=== PATIENT | female | born 1980 | race Caucasian/White ===

== ENCOUNTER 2020-01-14 08:43 | Outpatient (REF) | payer OTHER, SELFPAY ==
--- NOTE | 2020-01-14 09:00 | EMG_ITS ---
Right median and ulnar motor and sensory studies were performed. Right radial sensory study was performed and paraspinal muscles were tested. IMPRESSION: [id number] right median neuropathy across carpal tunnel. MD EMILY Modi/EMMIE / [id number]
== END 2020-01-14 08:44 | disposition home or self-care (01) ==
LOC: HO.NEURO 08:43
PROVIDERS: PCP Internal Medicine Geriatric Medicine; Visit Provider Internal Medicine Geriatric Medicine
DX: G56.01 Carpal tunnel syndrome, right upper limb (principal); M79.641 Pain in right hand; R20.0 Anesthesia of skin
CPT/HCPCS: 95860

== ENCOUNTER → 2020-02-18 12:34 | Outpatient (BNVA) | payer OTHER, SELFPAY | PROVIDERS: PCP Internal Medicine Geriatric Medicine; Visit Provider Surgery | DX: Z01.818 Encounter for other preprocedural examination (principal); E66.09 Other obesity due to excess calories; Z68.35 Body mass index [BMI] 35.0-35.9, adult; R06.02 Shortness of breath | CPT/HCPCS: 99202 ==

== ENCOUNTER 2020-02-23 12:24 | Outpatient (REF) | payer OTHER, SELFPAY ==
--- NOTE | 2020-02-23 12:30 | ECG_ITS ---
Test Reason : CP Blood Pressure : / mmHG Vent. Rate : 068 BPM Atrial Rate : 068 BPM P-R Int : 156 ms QRS Dur : 084 ms QT Int : 412 ms P-R-T Axes : 060 059 041 degrees QTc Int : 438 ms Normal sinus rhythm Normal ECG No previous ECGs available Referred By: Maribel Colvin Electronically Signed By:KAREY PEREIRA
--- NOTE | 2020-02-23 13:09 | XR_ITS ---
EXAMINATION: XR CHEST CLINICAL INFORMATION: Shortness of breath COMPARISON: None TECHNIQUE: 2 views of the chest were obtained. FINDINGS: No significant abnormality is noted involving the heart, lungs, mediastinum, bony thorax or soft tissues. XR/XR chest 2V IMPRESSION: Unremarkable examination.
[2020-02-23 14:30] LABS: MANUAL DIFF FLAG NO
[2020-02-23 14:33] LABS: Basophils Percent Auto 0.3 % (0-2); Eosinophils Percent Auto 0.4 % (0-4); Hematocrit 37.5 % (37-47); Hemoglobin 12.8 g/dl (12.0-16.0); Imm Gran Abs Auto 0.03 X10*3/uL (0.00-0.03); Imm Gran Pct Auto 0.4 % (0.0-0.4); Lymphocytes Absolute Auto 1.8 X10*3/uL (1.2-4.9); Lymphocytes Percent Auto 24.6 % (20-40); Mean Corpuscular HGB Conc 34.1 g/dl (31.0-35.0); Mean Corpuscular Hemoglobin 29.6 pg (27.0-33.0); Mean Corpuscular Volume 86.8 fL (80-98); Monocytes Absolute Auto 0.3 X10*3/uL (0.1-1.2); Monocytes Percent Auto 3.8 % (2-11); Neutrophils Absolute Auto 5.2 X10*3/uL (2.0-8.3); Neutrophils Percent Auto 70.5 % (45-73); Platelet Count 377 X10*3/uL (160-400); Red Blood Count 4.32 X10*6/uL (4.20-5.50); Red Cell Distribution Width 11.6 % (11.0-16.0); White Blood Count 7.4 X10*3/uL (4.8-10.8)
[2020-02-23 15:05] LABS: Alanine Aminotransferase 10 U/L (0-31); Albumin Level 4.1 g/dL (3.5-5.0); Alkaline Phosphatase 72 U/L (39-117); Anion Gap 10 (12-20); Aspartate Amino Transferase 13 U/L (5-31); Bilirubin Total 0.4 mg/dL (0.0-1.0); Blood Urea Nitrogen 7 mg/dL (9-16); C Reactive Protein 0.24 mg/dL (< or = 0.50); Calcium 9.2 mg/dL (8.4-10.2); Carbon Dioxide 30 mmol/L (22-29); Chloride 100 mmol/L (96-108); Cholesterol 152 mg/dL; Estimated Glomerular Filt Rate > 60; Glucose Fasting 83 mg/dL (60-99); HDL Cholesterol 44 mg/dL; Iron 86 mcg/dL (30-160); LDL Cholesterol Calculated 78 mg/dl; Percent Iron Saturation 28 % (15-50); Potassium 3.7 mmol/l (3.3-5.1); Sodium 136 mmol/L (135-145); Total Iron Binding Capacity 308 mcg/dL (228-428); Total Protein 7.4 g/dL (6.5-8.0); Triglycerides 153 mg/dL; Unsaturated Iron Binding 222 ug/dL
[2020-02-23 15:27] LABS: Thyroid Stimulating Hormone 1.31 uIU/mL (0.32-4.0); Vitamin D 25-OH Total 17.5 ng/mL (>30)
[2020-02-23 15:31] LABS: Vitamin B12 216 pg/mL (200-900)
[2020-02-24 18:33] LABS: Calcium (PTHI) 9.2 mg/dL (8.6-10.2); PTHI 58 pg/mL (14-64)
[2020-02-25 22:58] LABS: Zinc 71 mcg/dL (60-130)
[2020-02-27 11:52] LABS: Vitamin B1 <6 nmol/L (8-30)
[2020-03-01 12:57] LABS: Vitamin A 34 mcg/dL (38-98)
== END 2020-02-23 12:25 | disposition home or self-care (01) ==
LOC: HO.LAB 12:24
PROVIDERS: PCP Internal Medicine; Visit Provider Surgery
DX: Z01.818 Encounter for other preprocedural examination (principal); R06.02 Shortness of breath
CPT/HCPCS: 36415; 71046; 80053; 80061; 82306; 82607; 83540; 83970; 84425; 84443; 84590; 84630; 85025; 86140; 93005

== ENCOUNTER → 2020-03-04 08:16 | Outpatient (BNVA) | payer OTHER, SELFPAY | PROVIDERS: PCP Internal Medicine; Visit Provider Surgery | DX: Z76.89 Persons encountering health services in other specified circumstances (principal) ==

== ENCOUNTER → 2020-03-18 08:26 | Outpatient (BNVA) | payer OTHER, SELFPAY | PROVIDERS: PCP Internal Medicine; Visit Provider Dietitian, Registered ==

== ENCOUNTER → 2020-03-22 12:21 | Outpatient (BNVA) | payer OTHER, SELFPAY | PROVIDERS: PCP Internal Medicine; Visit Provider Orthopaedic Surgery | DX: G56.01 Carpal tunnel syndrome, right upper limb (principal) | CPT/HCPCS: 99202 ==

== ENCOUNTER 2020-04-01 10:28 | Outpatient (REF) | payer OTHER, SELFPAY ==
[2020-04-02 14:01] LABS: H Pylori Breath Test DETECTED (NOT DETECTED)
== END 2020-04-01 10:29 | disposition home or self-care (01) ==
LOC: HO.LNP 10:28
PROVIDERS: PCP Internal Medicine; Visit Provider Surgery
DX: E66.09 Other obesity due to excess calories (principal); Z68.34 Body mass index [BMI] 34.0-34.9, adult; Z11.0 Encounter for screening for intestinal infectious diseases
CPT/HCPCS: 83013; 99211; 99212

== ENCOUNTER → 2020-04-01 11:43 | Outpatient (BNVA) | payer OTHER, SELFPAY | PROVIDERS: PCP Internal Medicine; Visit Provider Surgery ==

== ENCOUNTER → 2020-04-08 08:25 | Outpatient (BNVA) | payer OTHER, SELFPAY | PROVIDERS: PCP Internal Medicine; Visit Provider Dietitian, Registered ==

== ENCOUNTER → 2020-04-18 14:49 | Outpatient (BNVA) | payer OTHER, SELFPAY | PROVIDERS: PCP Internal Medicine; Visit Provider Surgery | DX: E66.09 Other obesity due to excess calories (principal); Z68.35 Body mass index [BMI] 35.0-35.9, adult | CPT/HCPCS: 99212 ==

== ENCOUNTER 2020-04-28 13:59 | Outpatient (REF) | payer OTHER, SELFPAY ==
--- NOTE | ~2020-04-28 | MM_ITS ---
EXAMINATION: MM DIAGNOSTIC DIGITAL BREAST TOMOSYNTHESIS, BILATERAL CLINICAL INFORMATION: Right lateral breast pain The lifetime risk of breast cancer based on the Tyrer-Cuzick Model is 6.4%. COMPARISON: Mammography: None TECHNIQUE: Digital breast tomosynthesis is performed in both the craniocaudal and mediolateral oblique views along with computer-aided detection (CAD). Synthesized 2D images are generated from the tomosynthesis. Additional spot compression views of the right breast in craniocaudal and 90 degree mediolateral views performed. FINDINGS: The breasts are heterogeneously dense, which may obscure small masses (ACR BI-RADS breast composition Category c). Within the central upper outer aspect of the right breast is question of an asymmetric density with some microcalcifications for which spot magnification views were performed which efface the lesion and with no suspicious calcifications remaining. No abnormal dominant masses, suspicious grouping of microcalcifications, or architectural distortion seen within the left breast. Targeted ultrasound of the right breast in region of patient's pain did not demonstrate any abnormal cystic or solid masses. No region of abnormal distal sound shadowing appreciated. Results are provided to the patient at time of visit by the technologist. MM/MM tomosynthesis diagnostic BI IMPRESSION: No specific mammographic or ultrasound findings to suggest malignancy. ASSESSMENT: BI-RADS 1: Negative RECOMMENDATION: Routine annual mammography screening due in 12 months. Clinical management This patient's information was entered into a reminder system with a target due date for their next mammogram.
--- NOTE | ~2020-04-28 | US_ITS ---
EXAMINATION: US DIAGNOSTIC ULTRASOUND BREAST, RIGHT CLINICAL INFORMATION: Right breast pain. COMPARISON: Mammography of same day. TECHNIQUE: Ultrasound of the breast is performed with real-time sparks scale imaging and color Doppler. FINDINGS: Targeted ultrasound of the right breast in region of patient's pain did not demonstrate any abnormal cystic or solid masses. No region of abnormal distal sound shadowing appreciated. Results are provided to the patient at time of visit by the technologist. US/US breast RT limited IMPRESSION: No specific mammographic or ultrasound findings to suggest malignancy. ASSESSMENT: BI-RADS 1: Negative RECOMMENDATION: Routine annual mammography screening due in 12 months. Clinical management
== END 2020-04-28 14:00 | disposition home or self-care (01) ==
LOC: HO.MAMMO 13:59
PROVIDERS: PCP Advanced Practice Midwife; Visit Provider Advanced Practice Midwife
DX: N64.4 Mastodynia (principal)
CPT/HCPCS: 76642; 77062; 77066

== ENCOUNTER 2020-05-04 08:57 | Outpatient (REF) | payer OTHER, SELFPAY ==
[2020-05-04 11:13] LABS: Vitamin D 25-OH Total 23.8 ng/mL (>30)
[2020-05-05 14:53] LABS: H Pylori Breath Test DETECTED (NOT DETECTED)
[2020-05-08 13:22] LABS: Vitamin B1 17 nmol/L (8-30)
[2020-05-09 03:11] LABS: Vitamin A 34 mcg/dL (38-98)
== END 2020-05-04 08:58 | disposition home or self-care (01) ==
LOC: HO.LAB 08:57
PROVIDERS: PCP Internal Medicine; Visit Provider Surgery
DX: Z01.818 Encounter for other preprocedural examination (principal); G56.01 Carpal tunnel syndrome, right upper limb; E50.9 Vitamin A deficiency, unspecified; E51.9 Thiamine deficiency, unspecified; E55.9 Vitamin D deficiency, unspecified
CPT/HCPCS: 36415; 82306; 83013; 84425; 84590; 99212

== ENCOUNTER → 2020-05-10 08:59 | Outpatient (BNVA) | payer OTHER, SELFPAY | PROVIDERS: PCP Internal Medicine; Visit Provider Surgery | DX: E66.09 Other obesity due to excess calories (principal); Z68.35 Body mass index [BMI] 35.0-35.9, adult | CPT/HCPCS: 99212 ==

== ENCOUNTER 2020-05-19 10:59 | Day surgery (SDC) | payer OTHER, SELFPAY ==
[2020-05-19 11:16] VITALS: BP 127/76; PULSE 81; RESP 16; TEMP 36.4; O2SAT 96; BMI 34.0
--- NOTE | 2020-05-19 11:32 | P.OP_ITS ---
Operative Note Operative Note Date of Service: 05/19/20 Narrative: Preop diagnosis: 1. Right Carpal tunnel syndrome Postop diagnosis: 1. Right Carpal tunnel syndrome Procedure: 1. The right Carpal tunnel release Surgeon: Kaia Morales MD Anesthesia: local block using 1% lidocaine with epinephrine Findings: Thickened transverse carpal ligament. EBL: Less than 5 mL Specimens: None Complications: None Disposition: Brought to recovery room in stable condition Plan: Follow-up for 7-10 days for wound check and suture removal Indications: The patient is 40 years old, with right carpal tunnel syndrome that has been unresponsive to nonoperative management. The risks and benefits of operative treatment including but not limited to risk of damage to blood vessels, nerves, tendons, infection, persistent pain, persistent symptoms, or possible need for additional surgery were discussed with the patient and the patient wishes to proceed with surgery. Procedure: Once consent was obtained a local block was performed using a combination of 1% lidocaine with epinephrine. The patient was then brought back to the operating suite and placed on the operative table in supine position. A tourniquet was applied to the proximal aspect of the right upper extremity and the limb was prepped and draped in a standard surgical fashion. Once assured that we had a good block, a 1.5 cm longitudinal incision was made centered over the right carpal tunnel. The incision was made through the skin to the subcutaneous tissues using a #15 blade. Dissection was made down to the level of the transverse carpal ligament with care being taken to protect the palmar cutaneous nerve. Once the transverse carpal ligament was clearly visualized, a longitudinal incision was made in the transverse carpal ligament 1st using a #15 blade, then using tenotomy scissors under direct visualization. Care was taken to look for and protect the motor branch of the median nerve when seen in this area. Once satisfied with our carpal tunnel release the wound was copiously ir rigated with normal saline and hemostasis was obtained with a brief period of local pressure. The skin edges were reapproximated with some 5.0 nylon suture material and a sterile dressing was applied. The patient appears to have tolerated the procedure well and with no complications. All digits were well vascularized at the conclusion of the case.
[2020-05-19 14:01] VITALS: BP 122/75; PULSE 70; RESP 18; TEMP 37.1; O2SAT 97
--- NOTE | 2020-05-19 14:16 | MHC.SHP ---
Pre-Procedural Eval Section B Chief Complaint: carpal tunnel Allergies: Allergies Allergy/AdvReac Type Severity Reaction Status Date / Time No Known Allergies Allergy Verified 05/10/20 09:43 [No Known Allergies*] Plan I have reviewed the history and physical and performed a pertinent physical examination on my patient. No changes have occurred unless specified.
== END 2020-05-19 14:26 | disposition home or self-care (01) ==
PROVIDERS: PCP Internal Medicine; Visit Provider Orthopaedic Surgery
PROC: (CPT 64721; principal; 2020-05-19 12:10)
DX: G56.01 Carpal tunnel syndrome, right upper limb (principal)
CPT/HCPCS: 64721

== ENCOUNTER → 2020-05-26 10:39 | Outpatient (BNVA) | payer OTHER, SELFPAY | PROVIDERS: PCP Internal Medicine; Visit Provider Surgery | DX: E66.09 Other obesity due to excess calories (principal); Z68.35 Body mass index [BMI] 35.0-35.9, adult | CPT/HCPCS: 99212 ==

== ENCOUNTER → 2020-05-30 09:05 | Outpatient (BNVA) | payer OTHER, SELFPAY | PROVIDERS: Visit Provider Orthopaedic Surgery | DX: G56.01 Carpal tunnel syndrome, right upper limb (principal) | CPT/HCPCS: 99212 ==

== ENCOUNTER 2020-06-03 08:59 | Outpatient (REF) | payer OTHER, SELFPAY ==
[2020-06-04 12:16] LABS: H Pylori Breath Test NOT DETECTED (NOT DETECTED)
== END 2020-06-03 09:00 | disposition home or self-care (01) ==
LOC: HO.LNP 08:59
PROVIDERS: Visit Provider Physician Assistant
DX: Z01.818 Encounter for other preprocedural examination (principal); A04.8 Other specified bacterial intestinal infections
CPT/HCPCS: 83013; 99211

== ENCOUNTER 2020-06-16 14:51 | Outpatient (REF) | payer OTHER, SELFPAY ==
[2020-06-21 21:17] LABS: Vitamin A 38 mcg/dL (38-98)
== END 2020-06-16 14:52 | disposition home or self-care (01) ==
LOC: HO.LAB 14:51
PROVIDERS: Visit Provider Surgery
DX: Z01.818 Encounter for other preprocedural examination (principal); E50.9 Vitamin A deficiency, unspecified; E66.9 Obesity, unspecified; Z71.3 Dietary counseling and surveillance; Z68.35 Body mass index [BMI] 35.0-35.9, adult
CPT/HCPCS: 36415; 84590; 99212

== ENCOUNTER → 2020-07-01 13:49 | Outpatient (BNVA) | payer OTHER, SELFPAY | PROVIDERS: Referring Provider Internal Medicine Geriatric Medicine; Visit Provider Surgery | DX: E66.09 Other obesity due to excess calories (principal); Z68.35 Body mass index [BMI] 35.0-35.9, adult | CPT/HCPCS: 99212 ==

== ENCOUNTER → 2020-07-18 13:41 | Outpatient (BNVA) | payer OTHER, SELFPAY | PROVIDERS: PCP Internal Medicine Geriatric Medicine; Referring Provider Internal Medicine Geriatric Medicine; Visit Provider Surgery | DX: E66.09 Other obesity due to excess calories (principal); Z68.35 Body mass index [BMI] 35.0-35.9, adult | CPT/HCPCS: 99212 ==

== ENCOUNTER 2020-07-26 14:30 | Outpatient (REF) | payer OTHER, SELFPAY ==
--- NOTE | 2020-07-26 15:00 | ECG_ITS ---
Test Reason : SOB Blood Pressure : / mmHG Vent. Rate : 068 BPM Atrial Rate : 068 BPM P-R Int : 134 ms QRS Dur : 080 ms QT Int : 416 ms P-R-T Axes : 079 063 039 degrees QTc Int : 442 ms Normal sinus rhythm Normal ECG When compared with ECG of 02/23/20 No significant change was found Referred By: Maribel Colvin Electronically Signed By:Elliott Andrews
[2020-07-26 17:30] LABS: MANUAL DIFF FLAG NO
[2020-07-26 17:47] LABS: Basophils Percent Auto 0.3 % (0-2); Eosinophils Percent Auto 0.6 % (0-4); Hematocrit 36.7 % (37-47); Hemoglobin 12.5 g/dl (12.0-16.0); Imm Gran Abs Auto 0.01 X10*3/uL (0.00-0.03); Imm Gran Pct Auto 0.1 % (0.0-0.4); Lymphocytes Absolute Auto 1.7 X10*3/uL (1.2-4.9); Lymphocytes Percent Auto 25.2 % (20-40); Mean Corpuscular HGB Conc 34.1 g/dl (31.0-35.0); Mean Corpuscular Hemoglobin 29.8 pg (27.0-33.0); Mean Corpuscular Volume 87.6 fL (80-98); Mean Platelet Volume 11.3 fL (9.4-12.3); Monocytes Absolute Auto 0.3 X10*3/uL (0.1-1.2); Monocytes Percent Auto 3.8 % (2-11); Neutrophils Absolute Auto 4.8 X10*3/uL (2.0-8.3); Platelet Count 277 X10*3/uL (160-400); Red Blood Count 4.19 X10*6/uL (4.20-5.50); Red Cell Distribution Width 11.8 % (11.0-16.0); White Blood Count 6.9 X10*3/uL (4.8-10.8)
[2020-07-26 17:54] LABS: INTERNATIONAL NORM RATIO 1.1 (0.9-1.1); Prothrombin Time 13.2 SEC (10.8-13.0)
[2020-07-26 17:56] LABS: Partial Thromboplastin Time 35.3 SEC (24.1-38.0)
[2020-07-26 17:59] LABS: Glucose Urine UA NEG (NEG); Leukocyte Esterase Urine NEG (NEG); Nitrite Urine NEG (NEG); Urine Blood NEG (NEG); Urine Ketones NEG (NEG); Urine Protein NEG (NEG-TRACE)
[2020-07-26 18:01] LABS: Albumin Level 4.2 g/dL (3.5-5.0); Anion Gap 13 (12-20); Blood Urea Nitrogen 6 mg/dL (9-16); Calcium 8.9 mg/dL (8.4-10.2); Carbon Dioxide 25 mmol/L (22-29); Chloride 103 mmol/L (96-108); Estimated Glomerular Filt Rate > 60; Glucose Random 82 mg/dL (60-115); Sodium 137 mmol/L (135-145)
[2020-07-26 18:03] LABS: Appearance Urine CLEAR; Color Urine YELLOW
[2020-07-26 18:04] LABS: UPreg QC Valid YES; Urine Pregnancy NEGATIVE (NEGATIVE)
== END 2020-07-26 14:31 | disposition home or self-care (01) ==
LOC: HO.LAB 14:30
PROVIDERS: PCP Internal Medicine Geriatric Medicine; Visit Provider Surgery
DX: Z01.818 Encounter for other preprocedural examination (principal); R06.02 Shortness of breath; E66.09 Other obesity due to excess calories; Z68.32 Body mass index [BMI] 32.0-32.9, adult; Z79.899 Other long term (current) drug therapy
CPT/HCPCS: 36415; 80048; 81003; 81025; 82040; 85025; 85610; 85730; 93005; 99212

== ENCOUNTER → 2020-07-29 09:06 | Outpatient (BNVA) | payer OTHER, SELFPAY | PROVIDERS: PCP Internal Medicine Geriatric Medicine; Visit Provider Physician Assistant ==

== ENCOUNTER 2020-08-02 08:36 | Inpatient (IN) | payer OTHER, SELFPAY ==
[2020-07-26 09:38] VITALS: BMI 32.5
--- NOTE | 2020-08-01 08:54 | HO.ANESPROP2 ---
Documented by User: Genesis Posadas 08/01/20 08:56 HPI - Anesthesia Eval Consult details Narrative: 40yo F for Gastrectomy Sleeve, EGD, Diaphragmatic Hernia, Poss Ventral Hernia, Poss Open PMFSH Active Problems Active Problems: All Active Problems (Updated 07/26/20 @ 09:40 by Veronica Bojorquez) Obesity (Acute) BMI 32.0-32.9,adult (Acute) BMI 35.0-35.9,adult (Acute) Preoperative examination (Acute) Shortness of breath (Acute) Vitamin D deficiency (Acute) Vitamin B1 deficiency (Acute) Vitamin A deficiency (Acute) Carpal tunnel syndrome of right wrist (Acute) BMI 34.0-34.9,adult (Acute) H. pylori infection (Acute) BMI 33.0-33.9,adult (Acute) Past Medical History Medical History Carpal tunnel syndrome COVID-19 vaccine administered Obesity Sleep apnea Family History Family History Mother Atrophic emphysema Arthritis Father Hypertension Brother No problems noted. Sister No problems noted. Sister No problems noted. Sister No problems noted. Sister Vertigo Son No problems noted. Son No problems noted. Surgical History Surgical History History of bilateral tubal ligation History of carpal tunnel surgery of right wrist History of surgical removal of ganglion cyst Social History Social History Are you a primary home care liaison to a significant other at home: Yes Do you presently have visiting nurse or other home services: No Patient Tobacco Use Status: Never used Tobacco Use of substances other than those prescribed or required for medical reasons: No Have you been hit, kicked, punched, or otherwise hurt by someone within the past year? 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 Meds Allergies Allergy/AdvReac Type Severity Reaction Status Date / Time No Known Allergies Allergy Verified 07/26/20 15:28 [No Known Allergies*] Home Medications Medication Instructions Recorded Confirmed Last Taken Type zolpidem 5 mg tablet 5 mg PO BEDTIME PRN 07/01/20 08/02/20 08/01/20 History Exam Exam Date and Time: August 01, 2020 0854 Height,Weight and Vital Signs: Height 5 ft 2 in Weight 80.739 kg Pertinent Lab Results Pertinent Lab Results: Laboratory Tests 07/26/20 16:09 Blood Type O Positive Antibody Screen NEGATIVE Laboratory Tests 07/26/20 07/26/20 07/26/20 16:09 16:09 16:09 WBC 6.9 Hgb 12.5 Hct 36.7 L Plt Count 277 D PT 13.2 H INR 1.1 APTT 35.3 Sodium Potassium Chloride Carbon Dioxide BUN Creatinine Estimated GFR Calcium Albumin Urine Test NEGATIVE 07/26/20 16:09 WBC Hgb Hct Plt Count PT INR APTT Sodium 137 Potassium 4.0 Chloride 103 Carbon Dioxide 25 BUN 6 L Creatinine 0.69 Estimated GFR > 60 Calcium 8.9 Albumin 4.2 Urine Test Narrative Narrative: EKG 07/2020 Vent. Rate : 068 BPM Atrial Rate : 068 BPM P-R Int : 134 ms QRS Dur : 080 ms QT Int : 416 ms P-R-T Axes : 079 063 039 degrees QTc Int : 442 ms Normal sinus rhythm Normal ECG When compared with ECG of 02/23/20 No significant change was found Assessment and Plan Assessment Anesthesia Assessment: Chart Reviewed Documented by User: Tristin Frankel 08/02/20 09:55 [facility] Past Medical History Medical History Carpal tunnel syndrome COVID-19 vaccine administered Obesity Sleep apnea Family History Family History Mother Atrophic emphysema Arthritis Father Hypertension Brother No problems noted. Sister No problems noted. Sister No problems noted. Sister No problems noted. Sister Vertigo Son No problems noted. Son No problems noted. Surgical History Surgical History History of bilateral tubal ligation History of carpal tunnel surgery of right wrist History of surgical removal of ganglion cyst Social History Social History Are you a primary home care liaison to a significant other at home: Yes Do you presently have visiting nurse or other home services: No Patient Tobacco Use Status: Never used Tobacco Use of substances other than those prescribed or required for medical reasons: No Have you been hit, kicked, punched, or otherwise hurt by someone within the past year? 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 Meds Allergies Allergy/AdvReac Type Severity Reaction Status Date / Time No Known Allergies Allergy Verified 07/26/20 15:28 [No Known Allergies*] Home Medications Medication Instructions Recorded Confirmed Last Taken Type zolpidem 5 mg tablet 5 mg PO BEDTIME PRN 07/01/20 08/02/20 08/01/20 History Exam Airway Mallampati Class: II TM Dist: >3cm Neck ROM: Full Loose/Missing/Broken Teeth: No Heart: [id number] Lungs: cta b/l Assessment and Plan Assessment Anesthesia Assessment: Anesthesia Plan Discussed, PAT Visit and Chart Reviewed Final Anesthetic Review NPO: Yes ASA Class: III Final Preanesthetic Review: No Changes in Pt Med Stat, Meds/Allgs Chart Reviewed, Consent Obtained/Reviewed and Anes Risks/Benef Reviewed Patient Risk: Intermediate Procedure Risk: Low Assessment/Block/Sedation in SS: Assess/Block/Sedation-SS Anesthetic Plan Anesthetic Plan: GA and Agree w/ Assess. and Plan Disposition: Standard PACU
[2020-08-02] VITALS (15 sets, daily range): BP systolic 120–175; BP diastolic 77–97; PULSE 70–90; RESP 14–18; TEMP 36.1–36.5; O2SAT 97–100
--- NOTE | 2020-08-02 07:43 | MHC.SHP ---
Pre-Procedural Eval Section B Chief Complaint: Obesity Allergies: Allergies Allergy/AdvReac Type Severity Reaction Status Date / Time No Known Allergies Allergy Verified 07/26/20 15:28 [No Known Allergies*] Plan I have reviewed the history and physical and performed a pertinent physical examination on my patient. No changes have occurred unless specified.
[2020-08-02] MEDS: Lactated Ringers 1,000 ML 100 ML IVCONT (08:56)
[2020-08-02 09:02] LABS: COVID-19 Test Negative (Negative); IDNOW Serial# 9DD0AD1C
--- NOTE | 2020-08-02 13:05 | PM.OP ---
Brief Operative Note Date of Service: 08/02/20 Pre-op diagnosis: Obesity BMI 32.3 Post-op diagnosis: other (Same and hiatal hernia) Procedure: Laparoscopic sleeve gastrectomy, hiatal hernia repair, Joselyn block, and intraoperative endoscopy Implants: covidien june Surgeon: Maribel Colvin MD Anesthesia: GETA Was an Semiconductor Wafers Tester used for this Procedure?: Yes Semiconductor Wafers Tester: Yamileth Burr Estimated blood loss (mL): 15 Pathology: other (Partial gastrectomy) Condition: stable Disposition: PACU
--- NOTE | 2020-08-02 13:12 | P.DS_ITS ---
DS: Providers Provider Date of Service: 08/03/20 Date of admission: 08/02/20 08:36 Primary care physician: Unknown Physician DS: Medications Discharge Medications Home Medications: Home Medications Medication Instructions Recorded Confirmed zolpidem 5 mg tablet 5 mg PO BEDTIME PRN 07/01/20 08/02/20 Previous Rx's Medication Instructions Recorded phentermine 37.5 mg capsule 37.5 mg PO DAILY #30 cap 07/01/20 acetaminophen 500 mg tablet 1,000 mg PO Q6H PRN #30 tab 07/26/20 docusate sodium 100 mg capsule 100 mg PO BID #30 cap 07/26/20 famotidine 20 mg tablet 20 mg PO DAILY #30 tab 07/26/20 ondansetron HCl 4 mg tablet 4 mg PO Q6H PRN #30 tab 07/26/20 simethicone 80 mg chewable tablet 80 mg PO TID-QID PRN #30 tab 07/26/20 DS: Summary Time Spent with Patient Time attestation: DATE OF SERVICE: August 02, 2020 ADMITTING DIAGNOSES: obesity, sleep apnea, hiatal hernia DISCHARGE DIAGNOSES: same, see procedure PROCEDURE PERFORMED: laparoscopic sleeve gastrectomy and hiatal hernia repair DISCHARGE MEDICATIONS: 1. Simethicone 80mg q4h prn gas 2. Ondansetron 4mg po tid prn nausea 3. Famotidine 20mg po bid 4. Docusate sodium 100mg po bid DISCHARGE INSTRUCTIONS: The patient should continue on the stage III bariatric diet, which includes 3 protein shakes of at least 20-30g of protein on a daily basis. The patient was encouraged to avoid drinking liquids with her protein shakes. She should wait 30-45 minutes in between her meals and drinking water. She should drink at least 40-60 ounces of water on a daily basis. She should ambulate while at home to avoid any blood clots in her lower extremities. She should call with any questions or concerns such as increase in abdominal pain, persistent nausea, vomiting, redness and drainage from her incisions, fever, chills, shortness of breast, or chest pain beyond what is normal for her. The patient should avoid all heavy lifting greater than 5 pounds for the next 4 weeks. The patient is already scheduled to follow up with me in 2 weeks time, but should call the office with any questions prior to that follow up appointment. The patient should not advance her diet until she is seen in the office for the 2 week appointment. HOSPITAL COURSE: The patient was admitted after undergoing laparoscopic sleeve gastrectomy. She was started on stage II diet and was tolerating well without nausea or vomiting. Her pain was controlled on IV Dilaudid. All labs were within normal limits. On post-operative day #2 she was feeling better, nausea and epigastric pain improved and she was tolerating stage III bariatric diet well. She was discharged home. DISCHARGE DISPOSITION: Home. Total time spent providing and/or coordinating discharge services: 15 Discharge coordination time: Less than 30 minutes Quality: Stroke Does the patient have a stroke diagnosis?: No Physical Exam Vital Signs: Vital Signs: Last Vital Signs Temp 97.2 F 08/02/20 08:41 Pulse 77 08/02/20 08:41 Resp 16 08/02/20 08:41 BP 120/79 08/02/20 08:41 Pulse Ox 98 08/02/20 08:41 Body Mass Index 32.5 DS: Data Data Completed and Pending Pending studies at discharge: Pending at discharge 08/02/20 12:37 Surgical [PTH] Routine Labs on day of discharge: Laboratory Results - last 24 hr 08/02/20 08:23 COVID-19 ([facility]) Negative COVID-19 Clin Com See Note Discharge Plan Discharge Anticipated Discharge Date/Time: 08/03/20 11:08 Patient Disposition: Home, Self-Care Discharge Diagnosis: s/p sleeve gastrectomy Referrals: Physician,Unknown [Physician] - 1 Week Discharge Medications: Continued zolpidem [Ambien] 5 mg tablet 5 mg PO BEDTIME PRN (Reason: Insomnia) RF: 0 acetaminophen [Tylenol Extra Strength] 500 mg tablet 1,000 mg PO Q6H PRN (Reason: pain) Qty: 30 RF: 1 famotidine [Pepcid AC] 20 mg tablet 20 mg PO DAILY Qty: 30 RF: 1 simethicone [Gas Relief (simethicone)] 80 mg tablet,chewable 80 mg PO TID-QID PRN (Reason: abdominal distention) Qty: 30 RF: 1 ondansetron HCl [Zofran] 4 mg tablet 4 mg PO Q6H PRN (Reason: nausea and vomiting) Qty: 30 RF: 1 docusate sodium [Colace] 100 mg capsule 100 mg PO BID Qty: 30 RF: 1 Discontinued phentermine 37.5 mg capsule 37.5 mg PO DAILY Qty: 30 RF: 0 Discharge Orders: Discharge Order (Routine); Ordered 08/03/20 Ordered By: Maribel Colvin Diet: other Activity on Discharge: No heavy lifting Stand Alone Forms: Patient Portal Discharge page Activity Restrictions/Additional Instructions: No tub baths, sex or returning to work until discussed at first post op appointment. No exercise, alcohol, tobacco or illegal drug use. Continue to use incentive spirometer hourly while awake. Walk in home for 5- 10 minutes every 2 hours during the first week. Continue phase 3 diet until first post op appointment. Follow all instructions in the bariatric handbook and call with any questions.Discharge Instructions 1. Please call your doctor or come back to the emergency room should any new symptoms arise. 2. You will receive a courtesy call from [facility] 24-48 hours after discharge. 3. Activity: abstain from alcohol, practice limited stair climbing, no bending, no driving, no exercise, no illicit substances, no lifting, no sex, no tub bath, no work. 4. Diet: continue stage 3 protein shakes until your [address] Colvin. 5. Dressing Change/Wound Care: Your incision is covered by surgical glue. If the area is tender, you may apply an ice pack for short intervals (no more than 20 minutes on, followed by at least 20 minutes off). Do not apply heat. Do not use creams, lotions, or topical antibiotics unless instructed to do so by your surgeon. These can cause infection or allergic reaction. 6. Call your doctor if: - Your temperature exceeds 101.5 F - You experience excessive pain or swelling - You have an unexpected reaction to medication - You have excessive bleeding - You experience continued vomiting/nausea - Your incision begins to separate - Your incision shows signs of infection such as increased redness, swelling, excessive pain, heat, or drainage (light blood or clear fluid is normal) 7. General instructions: No lifting greater than 5 lbs for the next 4 weeks[address] within 24 hours of taking narcotic pain medications. If you do not move your bowels in the next 2 days, please take milk of magnesia over the counter. Please follow the post op diet and do not advance your diet until you are seen in the office in about 2 weeks. Please walk around your home every hour or two to prevent blood clots from forming in your legs. You do not need to wake from sleeping to walk. Please sleep in a bed or couch to prevent kinking at the hips and knees. Please take your incentive spirometer (your lung donor relations manager) home with you and use it for the next few days to prevent pneumonias. You may shower, no hot tubs, baths or swimming pools. Please call the office with any questions or concerns such as increasing abdominal pain, fever, chills, shortness of breath, chest pain, leg pain or swelling, or redness or drainage from your incisions. Please stay on stage 3 diet which includes sugar free clear liquids such as ice pops and jello and broth and crystal light. Avoid all carbonation. Please drink 3 protein shakes with at least 25-30 grams of protein daily or 3 of the Celebrate 4:1 shakes which can be purchased in our office. The Celebrate shakes have all of the bariatric vitamins you need if you consume these shakes. If you are drinking other protein shakes, you will need to purchase the Celebrate multivitamins and calcium that we provide in the office (they will provide all the vitamins you need). Please make sure you are consuming at least 40-60 ounces of water in addition to your 3 protein shakes daily. Do not hesitate to contact the office with any questions at . Care Plan Goals: weight loss Health Concerns: obesity Plan of Treatment: see discharge instructions Assessment: stable POD #1, lap sleeve gastrectomy Discharge Date/Time: 08/03/20 10:44
--- NOTE | 2020-08-02 13:15 | P.OP_ITS ---
Operative Note Operative Note Date of Service: 08/02/20 Narrative: Patient was brought into the operating room and placed on the operating room table in the supine position. General anesthesia was induced. Normal DVT prophylaxis was instituted and the patient received 2 grams of cefotetan preoperatively. The abdomen was then prepped and draped in the normal sterile fashion. A safety time-out was performed. A mixture of 1% lidocaine with epinephrine and ?% Marcaine plain was used to an esthetize the planned incision site in the left upper quadrant. A #11 scalpel was used to make a 5 mm left upper quadrant transverse incision through which a veress needle was placed. Three pops were heard going through the fascia. A saline drop test was used to confirm that the veress needle was intraabdominal. An optiview technique was then used to place a 5mm port in the left upper quadrant. A 5 mm 30 degree laproscope was then placed through this port and the abdominal cavity was surveyed and was normal. The patient was placed in reverse Trendelenburg positioning. A gavin liver retractor was then placed in the subxyphoid position and it was used to hold up the left lobe of the liver to the abdominal wall. This was secured to the bed using the liver retractor brown. A BO block was then performed for pain control on the right side of the abdomen. A 5 mm port was placed in the right upper quadrant near the falciform ligament. A 12 mm port was then placed in the mid epigastrium. One additional 5 mm port was placed in the left upper quadrant just to the left of the placement of the first port. I then performed a BO block on the left side of the abdomen. I then removed the epigastric fat pad; there was a moderate-sized anterior hiatal hernia noted. I reapproximated the left and right crura with a total of 2 stitches of 2-0 ethibond and a laparoscopic knot pusher. There was no residual hiatal hernia. I then opened up the angle of His. We then gained entry into the lesser sac about 4-5 cm from the pylorus. I had anesthesia place a 34 Cymro orogastric tube into the distal antrum to use as a sizing tool for gastric pouch size. I divided the short gastric vessels up to the angle of His. We then started the creation of the gastric pouch by firing a 60 mm purple load endostapler up the stomach about 4-5 cm from the pylorus. We completed the creation of the gastric pouch using a total of 4 firings of a 60 mm purple load stapler. We had anesthesia remove the orogast new tube, then we clamped across the distal antrum using a fired 60 mm endostapler. We flattened the patient and then instilled normal saline surrounding the newly created staple line. I then performed an on-table endoscopy. I passed the gastroscopy into the posterior oropharynx and down the esophagus evaluating the esophageal mucosa which was normal. There was no evidence of hiatal hernia. I passed the gastroscope into the gastric pouch and insufflated the gastric pouch. There was healthy pink mucosa and no evidence of active bleeding. There was no evidence of leak on laparoscopy. I desufflated the gastric pouch and removed the endoscope. I removed the endostapler from the abdomen and suctioned the fluid from the left upper quadrant. I then removed the partial gastrectomy specimen through the epigastric 12 mm port site. I reapproximated the 12 mm port using a 0 maxon suture with a laparoscopic suture passer. I instilled local anesthetic into the fascial closure site and tied the suture down at a pressure of 8-10 mm of Hg. There was no residual fascial defect. We removed the liver retractor and the left upper quadrant 5 mm ports under direct visualization. There was no evidence of any active bleeding. I desufflated the abdomen through the last remaining port and removed the laparoscope and 5 mm port. We reapproximated all incisions with a 4-0 monocryl subcuticular stitch. We cleaned and dried the abdominal skin and applied dermabond skin glue. All count were correct at the end of the case. The patient was awake and in stable condition prior to extubation and transfer to [facility] recovery room.
[2020-08-02] MEDS: Famotidine/PF 20 MG/2 ML VIAL IVPUSH ×2 (13:52→21:12)
[2020-08-02] MEDS: HYDROmorphone HCl 0.5 MG/0.5 ML SYRINGE IVPUSH (14:04)
[2020-08-02] MEDS: ondansetron HCL 4 MG/2 ML VIAL IVPUSH ×2 (15:41→23:03)
[2020-08-02] MEDS: Lactated Ringers 1,000 ML 125 ML IVCONT ×2 (16:05→23:03)
[2020-08-02] MEDS: 0.9 % Sodium Chloride Flush 3 ML SYRINGE IVFLUSH (21:12)
[2020-08-02] MEDS: Metoclopramide HCl 10 MG/2 ML VIAL IVPUSH (21:12)
[2020-08-02] MEDS: cefoTEtan disodium 2 GM in 0.9 % Sodium Chloride 50 ML IV (23:03)
[2020-08-02] MEDS: HYDROmorphone HCl 0.5 MG/0.5 ML SYRINGE 0.25 MG IVPUSH (23:06)
[2020-08-03 04:00] VITALS: BP 141/80; PULSE 81; RESP 19; TEMP 36.6; O2SAT 97
[2020-08-03 06:44] LABS: MANUAL DIFF FLAG NO
[2020-08-03 06:56] LABS: Basophils Percent Auto 0.1 % (0-2); Hematocrit 36.7 % (37-47); Hemoglobin 12.6 g/dl (12.0-16.0); Imm Gran Abs Auto 0.12 X10*3/uL (0.00-0.03); Imm Gran Pct Auto 0.7 % (0.0-0.4); Lymphocytes Absolute Auto 1.4 X10*3/uL (1.2-4.9); Lymphocytes Percent Auto 7.9 % (20-40); Mean Corpuscular HGB Conc 34.3 g/dl (31.0-35.0); Mean Corpuscular Hemoglobin 29.4 pg (27.0-33.0); Mean Corpuscular Volume 85.5 fL (80-98); Monocytes Absolute Auto 0.6 X10*3/uL (0.1-1.2); Monocytes Percent Auto 3.2 % (2-11); Neutrophils Absolute Auto 15.7 X10*3/uL (2.0-8.3); Neutrophils Percent Auto 88.1 % (45-73); Platelet Count 390 X10*3/uL (160-400); Red Blood Count 4.29 X10*6/uL (4.20-5.50); Red Cell Distribution Width 11.7 % (11.0-16.0); White Blood Count 17.8 X10*3/uL (4.8-10.8)
[2020-08-03] MEDS: Famotidine/PF 20 MG/2 ML VIAL IVPUSH (07:25)
[2020-08-03] MEDS: ondansetron HCL 4 MG/2 ML VIAL IVPUSH (07:25)
[2020-08-03] MEDS: Lactated Ringers 1,000 ML 125 ML IVCONT (07:29)
[2020-08-03 07:30] LABS: Anion Gap 12 (12-20); Calcium 9.1 mg/dL (8.4-10.2); Carbon Dioxide 26 mmol/L (22-29); Chloride 103 mmol/L (96-108); Creatinine Clr Calc Pharmacy 100.8; Estimated Glomerular Filt Rate > 60; Glucose Random 101 mg/dL (60-115); Potassium 3.9 mmol/L (3.3-5.1); Sodium 137 mmol/L (135-145)
[2020-08-03 07:47] VITALS: BP 148/79; PULSE 68; RESP 18; TEMP 36.6; O2SAT 100
[2020-08-03 07:54] LABS: Blood Urea Nitrogen 4 mg/dL (9-16)
--- NOTE | 2020-08-03 08:35 | PM.PNGS ---
Subjective Subjective Date of Service: 08/03/20 <Anne Dawkins PA-C - Last Filed: 08/03/20 10:44> 08/03/20 <Maribel Colvin MD - Last Filed: 08/03/20 09:36> Interval history: Patient is postop day 1. Status post laparoscopic sleeve gastrectomy and hiatal hernia repair. Patient is doing well and is tolerating stage III diet. She is using the incentive spirometer. Pain is well controlled. She denies any nausea vomiting. Vital signs and blood work are normal for postoperative day 1. <Maribel Colvin MD - Last Filed: 08/03/20 09:36> Physical Exam Vital Signs: Vital Signs: Last Vital Signs Temp 97.9 F 08/03/20 07:47 Pulse 68 08/03/20 07:47 Resp 18 08/03/20 07:47 BP 148/79 H 08/03/20 07:47 Pulse Ox 100 08/03/20 07:47 Body Mass Index 32.5 <Anne Dawkins PA-C - Last Filed: 08/03/20 10:44> Const: General: cooperative, healthy appearing, comfortable and no acute distress <Maribel Colvin MD - Last Filed: 08/03/20 09:36> GI: Inspection: Yes normal to inspection, No distended and Yes incision (Clean dry intact with Dermabond in place) <Maribel Colvin MD - Last Filed: 08/03/20 09:36> Palpation (GI): Soft to palpation, Tenderness to palpation present (GI) (Mild appropriate incisional), no guarding and not rigid <Maribel Colvin MD - Last Filed: 08/03/20 09:36> Extrem: General: Yes normal to inspection, Yes full ROM, Yes no clubbing, cyanosis or edema and Yes no calf tenderness <Maribel Colvin MD - Last Filed: 08/03/20 09:36> Progress Note: A&P Assessment and plan (1) S/P laparoscopic sleeve gastrectomy: Status: Acute <Anne Dawkins PA-C - Last Filed: 08/03/20 10:44> (2) Obesity: Status: Acute <CHRISTINE Arrington Last Filed: 08/03/20 10:44> (3) History of repair of hiatal hernia: Status: Acute <Anne Dawkins PA-C - Last Filed: 08/03/20 10:44> Assessment and Plan: POD #1: Patient is doing well and will be discharged home today. All the discharge instructions were reviewed with the patient and given in writing. Patient will follow up as scheduled in 2 weeks. <Anne Dawkins PA-C - Last Filed: 08/03/20 10:44> This is a 40-year-old lady on postoperative day 1. Status post laparoscopic sleeve gastrectomy hiatal hernia repair doing well. She will be discharged home today to follow up with me in 2 weeks time frame. She was it asked to avoid any heavy lifting greater than 5-10 lb. Patient will be discharged home on stage III bariatric diet. <Maribel Colvin MD - Last Filed: 08/03/20 09:36> Fall Risk Details Current Medications: Current Medications Generic Name Dose Route Start Last Admin Trade Name Freq PRN Reason Stop Dose Admin Famotidine 20 mg 08/02/20 14:00 08/03/20 07:25 Famotidine/Pf 20 Mg/2 Ml Vial IVPUSH 20 mg BID JONATAN Administration Hydromorphone HCl 0.25 mg 08/02/20 15:28 08/02/20 23:06 Hydromorphone Hcl 0.5 Mg/0.5 Ml Syringe IVPUSH 0.25 mg Q4H PRN Administration Pain, Moderate (Pain Scale 4-6 Lactated Ringer's 1,000 mls @ 125 mls/hr 08/02/20 15:28 08/03/20 07:29 Lr IVCONT 125 mls/hr .Q8H JONATAN Administration Acetaminophen 1,000 mg in 100 mls @ 16.7 mls/hr 08/02/20 15:28 08/03/20 03:44 Ofirmev IV 16.7 mls/hr .Q6H JONATAN Administration Metoclopramide HCl 10 mg 08/02/20 15:28 08/02/20 21:12 Metoclopramide Hcl 10 Mg/2 Ml Vial IVPUSH 10 mg Q6H PRN Administration Nausea Ondansetron HCl 4 mg 08/02/20 15:28 08/03/20 07:25 Ondansetron Hcl 4 Mg/2 Ml Vial IVPUSH 4 mg Q8H JONATAN Administration Sodium Chloride 3 ml 08/02/20 16:00 08/03/20 07:27 0.9 % Sodium Chloride Flush 3 Ml Syringe IVFLUSH Not Given QSHIFT JONATAN Zolpidem Tartrate 5 mg 08/02/20 15:28 Zolpidem Tartrate 5 Mg Tablet PO BEDTIME PRN Insomnia <Anne Dawkins PA-C - Last Filed: 08/03/20 10:44> Time Spent With Patient Time: Total time spent is greater than 50% in coordination of care (as documented) at patient's floor/unit and/or counseling patient: <Anne Dawkins PA-C - Last Filed: 08/03/20 10:44> Time with patient: less than 15 minutes <Maribel Colvin MD - Last Filed: 08/03/20 09:36> Procedures Date of Service Date of Service: 08/03/20 <Maribel Colvin MD - Last Filed: 08/03/20 09:36>
--- NOTE | 2020-08-03 09:44 | MHC.CM.PN ---
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 all discharge paperwork completed
--- NOTE | 2020-08-03 14:21 | HO.POSTANES ---
Post Anesthesia Evaluation Post Anesthesia Evaluation Vital Signs: Vital Signs Temp Pulse Resp BP Pulse Ox 08/03/20 07:47 97.9 F 68 18 148/79 H 100 08/03/20 04:00 97.9 F 81 19 141/80 H 97 Anesthesia: General Endotracheal-GETA Mental Status: Awake Pain Control: Satisfactory Nausea/Vomiting: None Hydration: Adequate Anesthesia-Related Issues: No Anes. Related Issues
== END 2020-08-03 10:44 | disposition home or self-care (01) | DRG 403 ==
LOC: HO.SSSA 13:12 → HO.S3 13:30
PROVIDERS: Physician Assistant; Admitting Provider Surgery; PCP Internal Medicine Geriatric Medicine; Visit Provider Surgery
PROC: 0DB64Z3 Excision of Stomach, Percutaneous Endoscopic Approach, Vertical (ICD-10-PCS; CPT 43845; principal; 2020-08-02 10:10)
DX: E66.9 Obesity, unspecified (principal); G47.30 Sleep apnea, unspecified; K44.9 Diaphragmatic hernia without obstruction or gangrene; Z79.899 Other long term (current) drug therapy
CPT/HCPCS: 36415; 80048; 85025; 86850; 86900; 86901; 87635; 88307; 88342; 99024; C1776; J0131; J1100; J1170; J2250; J2405; J2550; J2765; J3010

== ENCOUNTER → 2020-08-16 14:03 | Outpatient (BNVA) | payer OTHER, SELFPAY | PROVIDERS: Visit Provider Surgery | DX: Z98.84 Bariatric surgery status (principal); Z98.890 Other specified postprocedural states; Z87.19 Personal history of other diseases of the digestive system | CPT/HCPCS: 99212 ==

== ENCOUNTER → 2020-09-13 13:58 | Outpatient (BNVA) | payer OTHER, SELFPAY | PROVIDERS: Visit Provider Physician Assistant | DX: E66.3 Overweight (principal); Z98.84 Bariatric surgery status | CPT/HCPCS: 99212 ==

== ENCOUNTER → 2020-10-04 14:09 | Outpatient (BNVA) | payer OTHER, SELFPAY | PROVIDERS: Visit Provider Dietitian, Registered | DX: E66.3 Overweight (principal) | CPT/HCPCS: 97803 ==

== ENCOUNTER 2020-11-11 12:05 | Outpatient (REF) | payer OTHER, SELFPAY ==
--- NOTE | ~2020-11-11 | XR_ITS ---
EXAMINATION: XR CERVICAL SPINE CLINICAL INFORMATION: Neck pain COMPARISON: None TECHNIQUE: 6 views of the cervical spine, inclusive of bilateral oblique views, were obtained. FINDINGS: There is increased cervical kyphosis and curvature of the lower cervical spine to the right. Bone alignment is otherwise normal. No fracture or dislocation is seen. There is degenerative spondylosis and degenerative disc disease at C5-C6. There is right-sided neural foraminal narrowing from bony osteophyte at C5-C6. Left-sided neural foramen are patent. Prevertebral soft tissues are normal. XR/XR cervical spine min 6V IMPRESSION: Degenerative spondylosis and right-sided neural foraminal narrowing at C5-C6.
== END 2020-11-11 12:06 | disposition home or self-care (01) ==
LOC: HO.XRAY 12:05
PROVIDERS: PCP Internal Medicine Geriatric Medicine; Visit Provider Internal Medicine Geriatric Medicine
DX: M54.2 Cervicalgia (principal)
CPT/HCPCS: 72052

== ENCOUNTER → 2020-11-29 09:56 | Outpatient (BNVA) | payer OTHER, SELFPAY | PROVIDERS: Referring Provider Internal Medicine Geriatric Medicine; Visit Provider Surgery | DX: Z98.84 Bariatric surgery status (principal); Z98.890 Other specified postprocedural states; Z87.19 Personal history of other diseases of the digestive system | CPT/HCPCS: 99212 ==

== ENCOUNTER → 2021-02-28 08:05 | Outpatient (BNVA) | payer OTHER, SELFPAY | PROVIDERS: Visit Provider Dietitian, Registered | DX: E66.3 Overweight (principal); Z68.27 Body mass index [BMI] 27.0-27.9, adult | CPT/HCPCS: 97803 ==

== ENCOUNTER → 2021-05-03 13:56 | Outpatient (BNVA) | payer OTHER, SELFPAY | PROVIDERS: Visit Provider Physician Assistant Surgical | DX: E66.3 Overweight (principal); Z68.28 Body mass index [BMI] 28.0-28.9, adult; Z98.84 Bariatric surgery status | CPT/HCPCS: 99212 ==

== ENCOUNTER 2021-05-08 08:21 | Outpatient (REF) | payer OTHER, SELFPAY ==
--- NOTE | ~2021-05-08 | MM_ITS ---
EXAMINATION: MM SCREENING DIGITAL BREAST TOMOSYNTHESIS, BILATERAL CLINICAL INFORMATION: Screening. Asymptomatic. The lifetime risk of breast cancer based on the Tyrer-Cuzick Model is 7%. COMPARISON: Mammography: 04/28/2020 (baseline) TECHNIQUE: Digital breast tomosynthesis is performed in both the craniocaudal and mediolateral oblique views along with computer-aided detection (CAD). Synthesized 2D images are generated from the tomosynthesis. FINDINGS: There are scattered areas of fibroglandular density (ACR BI-RADS breast composition Category b). There are no significant masses, abnormal calcifications, or other abnormalities. Breast tissue composition borders on heterogeneously dense. Parenchymal pattern is similar to baseline exam. There are no significant changes. MM/MM tomosynthesis screening BI IMPRESSION: No mammographic evidence of malignancy. ASSESSMENT: BI-RADS 1: Negative RECOMMENDATION: Routine annual mammography screening. This patient's information was entered into a reminder system with a target due date for their next mammogram.
== END 2021-05-08 08:22 | disposition home or self-care (01) ==
LOC: HO.MAMMO 08:21
PROVIDERS: PCP Internal Medicine; Visit Provider Internal Medicine
DX: Z12.31 Encounter for screening mammogram for malignant neoplasm of breast (principal)
CPT/HCPCS: 77063; 77067

== ENCOUNTER 2021-11-07 12:49 | Emergency (ER) | payer OTHER, SELFPAY ==
--- NOTE | ~2021-11-07 | XR_ITS ---
EXAMINATION: XR CHEST CLINICAL INFORMATION: Chest pain COMPARISON: X-ray 02/23/2020 TECHNIQUE: Frontal view of the chest was obtained. FINDINGS: The cardiomediastinal silhouette is within normal limits. The lungs are well expanded. There is no focal consolidation, edema, or effusion. No pneumothorax. Monitoring leads overlie the chest. No acute osseous abnormality. XR/XR chest 1V IMPRESSION: No acute cardiopulmonary findings.
--- NOTE | 2021-11-07 13:08 | ECG_ITS ---
Test Reason : chest pain Blood Pressure : / mmHG Vent. Rate : 064 BPM Atrial Rate : 064 BPM P-R Int : 148 ms QRS Dur : 084 ms QT Int : 416 ms P-R-T Axes : 037 071 050 degrees QTc Int : 429 ms Normal sinus rhythm Normal ECG When compared with ECG of 26-JUL-2020 15:52, No significant change was found Referred By: Generic ED Physician Electronically Signed By:BHARAT GOLDMAN
[2021-11-07 14:27] VITALS: BP 167/104; PULSE 65; RESP 18; TEMP 36.9; O2SAT 98; BMI 28.3
[2021-11-07 14:52] LABS: MANUAL DIFF FLAG NO
[2021-11-07 14:57] LABS: Basophils Percent Auto 0.4 % (0-2); Eosinophils Percent Auto 0.3 % (0-4); Hematocrit 36.5 % (37.0-47.0); Hemoglobin 12.5 g/dl (12.0-16.0); Imm Gran Abs Auto 0.03 X10*3/uL (0.00-0.03); Imm Gran Pct Auto 0.4 % (0.0-0.4); Lymphocytes Absolute Auto 1.8 X10*3/uL (1.2-4.9); Lymphocytes Percent Auto 24.2 % (20-40); Mean Corpuscular HGB Conc 34.2 g/dl (31.0-35.0); Mean Corpuscular Hemoglobin 30.4 pg (27.0-33.0); Mean Corpuscular Volume 88.8 fL (80.0-98.0); Mean Platelet Volume 9.4 fL (9.4-12.3); Monocytes Absolute Auto 0.3 X10*3/uL (0.1-1.2); Monocytes Percent Auto 4.3 % (2-11); Neutrophils Absolute Auto 5.2 x10*3/uL (2.0-8.3); Neutrophils Percent Auto 70.4 % (45-73); Platelet Count 321 X10*3/uL (160-400); Red Blood Count 4.11 X10*6/uL (4.20-5.50); Red Cell Distribution Width 11.5 % (11.0-16.0); White Blood Count 7.4 X10*3/uL (4.8-10.8)
[2021-11-07 15:12] LABS: Anion Gap 13 (12-20); Blood Urea Nitrogen 6 mg/dL (9-16); Calcium 8.9 mg/dL (8.4-10.2); Carbon Dioxide 27 mmol/L (22-29); Chloride 104 mmol/L (96-108); Creatinine Clr Calc Pharmacy 94.4; Estimated Glomerular Filt Rate > 60; Glucose Random 82 mg/dL (60-115); Potassium 4.1 mmol/L (3.3-5.1); Sodium 140 mmol/L (135-145)
--- NOTE | 2021-11-07 15:21 | ED.CHESTPAIN ---
HPI - Chest Pain General Chief Complaint: Chest Pain Stated Complaint: chest pain Time Seen by Provider: 11/07/21 15:03 Source: patient Mode of arrival: ambulatory Limitations: no limitations History of Present Illness HPI narrative: 41-year-old female came in for evaluation of chest pain. Chest pain started since yesterday localized to the left parasternal chest area pain has been constant since yesterday, pain wax and wane but constant, increased pain with movement or bending the head down or taking a deep breath. No coughing or chest injury. No recent travel, no prolonged immobilization, no lower extremity swelling or tenderness. Related Data Home Medications Medication Instructions Recorded Confirmed zolpidem 5 mg tablet (Ambien) 5 mg PO BEDTIME PRN Insomnia 07/01/20 11/29/20 Allergies Allergy/AdvReac Type Severity Reaction Status Date / Time No Known Allergies Allergy Verified 05/03/21 14:08 [No Known Allergies*] Review of Systems Review of Systems: All other systems are reviewed and are negative Constitutional: Reports as per HPI and Reports no additional constitutional complaints Eyes: Reports as per HPI and Reports no additional eye complaints Reports system reviewed and no additional complaints, except as documented Cardiovascular: Reports as per HPI and Reports no additional cardiovascular complaints Respiratory: Reports as per HPI and Reports no additional respiratory complaints Gastrointestinal: Reports as per HPI and Reports no additional gastrointestinal complaints Genitourinary: Reports no additional female genitourinary complaints Musculoskeletal: Reports no additional musculoskeletal complaints Skin/Breast: Reports system reviewed and no additional complaints, except as docu Psychiatric: Reports no additional psychiatric complaints Endocrine: Reports no additional endocrine complaints Hematologic/Lymphatic: Reports no additional hematologic/lymphatic complaints Allergic/Immunologic: Reports no additional allergic/immunologic complaints Reports system reviewed and no additional complaints, except as documented and Reports Abnormal speech present [facility] Past Medical History Medical History BMI 32.0-32.9,adult BMI 33.0-33.9,adult BMI 34.0-34.9,adult BMI 35.0-35.9,adult Carpal tunnel syndrome Carpal tunnel syndrome of right wrist COVID-19 vaccine administered H. pylori infection Obesity Overweight (BMI 25.0-29.9) Preoperative examination Shortness of breath Sleep apnea Vitamin A deficiency Vitamin B1 deficiency Vitamin D deficiency Surgical History History of bilateral tubal ligation History of carpal tunnel surgery of right wrist History of sleeve gastrectomy History of surgical removal of ganglion cyst Family History Family History Mother Atrophic emphysema Arthritis Father Hypertension Brother No problems noted. Sister No problems noted. Sister No problems noted. Sister No problems noted. Sister Vertigo Son No problems noted. Son No problems noted. 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 Blood pressure normal. Heart rate normal. Respiration rate normal. Temperature normal. Oxygen saturation normal. Appearance: Alert. Oriented X3. No acute distress. Head: Normal external exam. Normocephalic. Atraumatic. No Walter signs noted. No raccoon eyes noted Eyes: PERRLA. EOMI. Conjunctiva and sclera normal. Eyelids normal. ENT: TM's Normal. Pharynx normal. Uvula midline. Moist mucous membranes. No trismus noted. No drooling noted. No muffled voice noted. Neck: Normal inspection. Neck supple. FROM. No adenopathy. Thyroid Normal. No meningeal signs. No neck mass noted. CVS: Normal heart rate and rhythm. Heart sound normal. No murmurs noted. Pulses normal throughout. Respiratory: No respiratory distress. Painless inspiration. Breath sounds normal. No wheezes/rales/rhonchi noted. Reproducible tenderness over the left side of the chest, no step-off, no deformity.. No accessory muscle usage noted or decreased air movement noted. Abdomen: Soft and nontender. Bowel sounds normal in all 4 quadrants. No distention noted. No organomegaly noted. No visible injury noted. Back: No CVA tenderness. Full range of motion noted. Skin: Skin warm and dry. Normal skin color. Normal skin turgor. No rashes/lesions/lacerations noted. Extremities: No lower extremity edema. Extremities exhibit normal range of motion. Extremities nontender. Neuro: Oriented X 3. Cranial nerve exam: II-XII are grossly intact No motor deficit. No sensory deficit. Reflexes normal. Course Course Course Narrative: 41-year-old female came in with left-sided chest pain pain is reproducible and pleuritic, HEART score 0, patient at low risk for PE or DVT with a negative D-dimer. Patient's symptoms likely due to costochondritis, recommended to the patient and to take ibuprofen p.r.n. needed for pain. MDM - Chest Pain Medical Records Data Attestation: I reviewed the patient's medical records. Lab Data Attestation: I reviewed the patient's lab results. Result diagrams: 11/07/21 14:39 11/07/21 14:39 Labs: Lab Results 11/07/21 11/07/21 11/07/21 Range/Units 14:39 14:39 15:23 WBC 7.4 (4.8-10.8) X10*3/uL RBC 4.11 L (4.20-5.50) X10*6/uL Hgb 12.5 (12.0-16.0) g/dl Hct 36.5 L (37.0-47.0) % MCV 88.8 (80.0-98.0) fL MCH 30.4 (27.0-33.0) pg MCHC 34.2 (31.0-35.0) g/dl RDW 11.5 (11.0-16.0) % Plt Count 321 (160-400) X10*3/uL MPV 9.4 (9.4-12.3) fL Immature Gran % (Auto) 0.4 (0.0-0.4) % Neut % (Auto) 70.4 (45-73) % Lymph % (Auto) 24.2 (20-40) % Island % (Auto) 4.3 (2-11) % Eos % (Auto) 0.3 (0-4) % Baso % (Auto) 0.4 (0-2) % Lymph # (Auto) 1.8 (1.2-4.9) X10*3/uL Island # (Auto) 0.3 (0.1-1.2) X10*3/uL Eos # (Auto) 0.0 (0.0-0.4) X10*3/uL Baso # (Auto) 0.0 (0.0-0.2) X10*3/uL Abs Immat Gran (auto) 0.03 (0.00-0.03) X10*3/uL Absolute Neuts (auto) 5.2 (2.0-8.3) x10*3/uL Absolute Nucleated RBC 0.000 (0.0-0.012) X10*3/uL Nucleated RBC % (auto) 0.0 (0.0-0.2) /100WBC D-Dimer High Sensitivty NG/ML Sodium 140 (135-145) mmol/L Potassium 4.1 (3.3-5.1) mmol/L Chloride 104 (96-108) mmol/L Carbon Dioxide 27 (22-29) mmol/L Anion Gap 13 (12-20) BUN 6 L (9-16) mg/dL Creatinine 0.72 (0.5-1.4) mg/dL Estim Creat Clear Calc 94.4 Estimated GFR > 60 Random Glucose 82 (60-115) mg/dL Calcium 8.9 (8.4-10.2) mg/dL Troponin I High Sens (<3.5-17.0) ng/L Urine Color Yellow Urine Appearance Clear Urine pH 7.5 (5.0-9.0) Ur Specific [place] <= 1.005 (1.005-1.025) Urine Protein Negative (Neg-Trace) mg/dL Urine Glucose (UA) Negative (Negative) mg/dL Urine Ketones Negative (Negative) mg/dL Urine Blood Negative (Negative) Urine Nitrite Negative (Negative) Ur Leukocyte Esterase Negative (Negative) Urine Test (NEGATIVE) 11/07/21 11/07/21 11/07/21 Range/Units 15:23 15:42 15:42 WBC (4.8-10.8) X10*3/uL RBC (4.20-5.50) X10*6/uL Hgb (12.0-16.0) g/dl Hct (37.0-47.0) % MCV (80.0-98.0) fL MCH (27.0-33.0) pg MCHC (31.0-35.0) g/dl RDW (11.0-16.0) % Plt Count (160-400) X10*3/uL MPV (9.4-12.3) fL Immature Gran % (Auto) (0.0-0.4) % Neut % (Auto) (45-73) % Lymph % (Auto) (20-40) % Island % (Auto) (2-11) % Eos % (Auto) (0-4) % Baso % (Auto) (0-2) % Lymph # (Auto) (1.2-4.9) X10*3/uL Island # (Auto) (0.1-1.2) X10*3/uL Eos # (Auto) (0.0-0.4) X10*3/uL Baso # (Auto) (0.0-0.2) X10*3/uL Abs Immat Gran (auto) (0.00-0.03) X10*3/uL Absolute Neuts (auto) (2.0-8.3) x10*3/uL Absolute Nucleated RBC (0.0-0.012) X10*3/uL Nucleated RBC % (auto) (0.0-0.2) /100WBC D-Dimer High Sensitivty 157 NG/ML Sodium (135-145) mmol/L Potassium (3.3-5.1) mmol/L Chloride (96-108) mmol/L Carbon Dioxide (22-29) mmol/L Anion Gap (12-20) BUN (9-16) mg/dL Creatinine (0.5-1.4) mg/dL Estim Creat Clear Calc Estimated GFR Random Glucose (60-115) mg/dL Calcium (8.4-10.2) mg/dL Troponin I High Sens < 3.5 (<3.5-17.0) ng/L Urine Color Urine Appearance Urine pH (5.0-9.0) Ur Specific [place] (1.005-1.025) Urine Protein (Neg-Trace) mg/dL Urine Glucose (UA) (Negative) mg/dL Urine Ketones (Negative) mg/dL Urine Blood (Negative) Urine Nitrite (Negative) Ur Leukocyte Esterase (Negative) Urine Test NEGATIVE (NEGATIVE) Imaging Data Right ankle x-ray: Attestation: I personally reviewed and interpreted this imaging study as follows: Radiologist's impression: Correction; patient did not have ankle x-ray. Chest x-ray: Attestation: I personally reviewed and interpreted this imaging study as follows: Radiologist's impression: No acute cardiopulmonary findings. ECG Data ECG #1: Attestation: I personally reviewed and interpreted this ECG as follows: Interpretation: Normal sinus rhythm at 64 beats per minutes, normal intervals, no ST-T changes, no change from previous EKG. Discharge Plan Discharge Clinical Impression: Costalchondritis Patient Disposition: Home, Self-Care Instructions: Costochondritis (ED) Prescriptions: No Action zolpidem [Ambien] 5 mg tablet 5 mg PO BEDTIME PRN (Reason: Insomnia) Referrals: Physician,Unknown J [Primary Care Provider] - Stand Alone Forms: Work/School Release
[2021-11-07 15:38] LABS: UPreg QC Valid YES; Urine Pregnancy NEGATIVE (NEGATIVE)
[2021-11-07 15:41] LABS: Appearance Urine Clear; Color Urine Yellow; Glucose Urine UA Negative (Negative); Leukocyte Esterase Urine Negative (Negative); Nitrite Urine Negative (Negative); PH 7.5 (5.0-9.0); Specific Gravity - Urine <= 1.005 (1.005-1.025); Urine Blood Negative (Negative); Urine Ketones Negative (Negative); Urine Protein Negative (Neg-Trace)
[2021-11-07 15:46] VITALS: BP 142/78; PULSE 65; RESP 16; TEMP 36.5; O2SAT 100
--- NOTE | 2021-11-07 15:49 | PC.NURSE ---
patient a/ox4 . pearrla . heart rate regular at 74 beat . lungs clear . skin pink warm and dry . abdomen soft , non tender positive bowel sounds throughout . patient c/o of chest pain that woke her from deep sleep on and off since last night that happens when she takes a deep breath , moves or walks . labs have been drawn and sent . patient on control and recovery combat rescue . IV placed in left AC. patient aware of plan of care .
[2021-11-07 15:55] LABS: D Dimer High Sensitivity 157 NG/ML
[2021-11-07 16:08] LABS: Troponin-I High Sensitivity < 3.5 ng/L (<3.5-17.0)
== END 2021-11-07 17:35 | disposition home or self-care (01) ==
PROVIDERS: Emergency Provider Emergency Medicine
DX: M94.0 Chondrocostal junction syndrome [Tietze] (principal); Z98.84 Bariatric surgery status
CPT/HCPCS: 36415; 71045; 80048; 81003; 81025; 84484; 85025; 85379; 93005; 99283; 99284

== ENCOUNTER 2023-03-14 10:17 | Outpatient (REF) | payer OTHER, SELFPAY ==
[2023-03-14 11:52] LABS: MANUAL DIFF FLAG NO
[2023-03-14 12:13] LABS: Basophils Percent Auto 0.4 % (0-2); Eosinophils Absolute Auto 0.1 X10*3/uL (0.0-0.4); Eosinophils Percent Auto 0.9 % (0-4); Hemoglobin 12.8 g/dl (12.0-16.0); Imm Gran Abs Auto 0.01 X10*3/uL (0.00-0.03); Imm Gran Pct Auto 0.2 % (0.0-0.4); Lymphocytes Absolute Auto 1.5 X10*3/uL (1.2-4.9); Lymphocytes Percent Auto 27.8 % (20-40); Mean Corpuscular HGB Conc 33.7 g/dl (31.0-35.0); Mean Corpuscular Hemoglobin 29.4 pg (27.0-33.0); Mean Corpuscular Volume 87.4 fL (80.0-98.0); Mean Platelet Volume 10.1 fL (9.4-12.3); Monocytes Absolute Auto 0.2 X10*3/uL (0.1-1.2); Monocytes Percent Auto 4.3 % (2-11); Neutrophils Absolute Auto 3.6 x10*3/uL (2.0-8.3); Neutrophils Percent Auto 66.4 % (45-73); Platelet Count 343 X10*3/uL (160-400); Red Blood Count 4.35 X10*6/uL (4.20-5.50); Red Cell Distribution Width 11.9 % (11.0-16.0); White Blood Count 5.4 X10*3/uL (4.8-10.8)
[2023-03-14 12:20] LABS: Alanine Aminotransferase 11 U/L (0-31); Albumin Level 4.1 g/dL (3.5-5.0); Alkaline Phosphatase 71 U/L (39-117); Anion Gap 12 (12-20); Aspartate Amino Transferase 14 U/L (5-31); Bilirubin Total 0.4 mg/dL (0.0-1.0); Blood Urea Nitrogen 10 mg/dL (9-16); Calcium 9.2 mg/dL (8.4-10.2); Carbon Dioxide 28 mmol/L (22-29); Chloride 103 mmol/L (96-108); Estimated Glomerular Filt Rate > 60; Glucose Random 82 mg/dL (60-115); Iron 59 mcg/dL (30-160); Percent Iron Saturation 21 % (15-50); Potassium 4.3 mmol/L (3.3-5.1); Sodium 139 mmol/L (135-145); Total Iron Binding Capacity 276 mcg/dL (228-428); Total Protein 7.9 g/dL (6.5-8.0); Unsaturated Iron Binding 217 ug/dL
[2023-03-14 12:37] LABS: TSH reflex Free T4 1.07 uIU/mL (0.32-4.0); Vitamin D 25-OH Total 13.3 ng/mL (>30)
[2023-03-14 13:03] LABS: Parathyroid Hormone Intact 118.4 pg/mL (8.7-77.1)
[2023-03-14 13:28] LABS: Folate 5.2 ng/mL (> or = 4.0); Vitamin B12 320 pg/mL (200-900)
== END 2023-03-14 10:18 | disposition home or self-care (01) ==
LOC: HO.HHCL 10:17
PROVIDERS: Visit Provider Internal Medicine Geriatric Medicine
DX: Z00.00 Encounter for general adult medical examination without abnormal findings (principal); F41.8 Other specified anxiety disorders; E51.9 Thiamine deficiency, unspecified; E55.9 Vitamin D deficiency, unspecified; N94.10 Unspecified dyspareunia; Z98.84 Bariatric surgery status
CPT/HCPCS: 36415; 80053; 82306; 82607; 82746; 83540; 83970; 84443; 85025

== ENCOUNTER 2023-03-14 10:35 | Outpatient (REF) | payer OTHER, SELFPAY ==
[2023-03-19 14:32] LABS: Vitamin B1 9 nmol/L (8-30)
== END 2023-03-14 10:36 | disposition home or self-care (01) ==
LOC: HO.LAB 10:35
PROVIDERS: PCP Internal Medicine Geriatric Medicine; Visit Provider Internal Medicine Geriatric Medicine
DX: E51.9 Thiamine deficiency, unspecified (principal); Z98.84 Bariatric surgery status
CPT/HCPCS: 36415; 84425

== ENCOUNTER 2023-04-17 15:07 | Outpatient (REF) | payer OTHER, SELFPAY ==
--- NOTE | ~2023-04-17 | MM_ITS ---
EXAMINATION: MM SCREENING DIGITAL BREAST TOMOSYNTHESIS, BILATERAL CLINICAL INFORMATION: Screening. Asymptomatic. COMPARISON: Mammography: This study is compared with prior exams dating back to 2020. TECHNIQUE: Digital breast tomosynthesis is performed in both the craniocaudal and mediolateral oblique views along with computer-aided detection (CAD). Synthesized 2D images are generated from the tomosynthesis. FINDINGS: The breasts are heterogeneously dense, which may obscure small masses (ACR BI-RADS breast composition Category c). There are no significant masses, abnormal calcifications, or other abnormalities. MM/MM tomosynthesis screening BI IMPRESSION: No mammographic evidence of malignancy. ASSESSMENT: BI-RADS BI-RADS 1 - Negative RECOMMENDATION: Routine annual mammography screening. 1 year F/U This examination should not preclude the clinical evaluation of a suspicious palpable abnormality. This patient's information was entered into a reminder system with a target due date for their next mammogram.
== END 2023-04-17 15:08 | disposition home or self-care (01) ==
LOC: HO.MAMMO 15:07
PROVIDERS: PCP Internal Medicine Geriatric Medicine; Visit Provider Internal Medicine Geriatric Medicine
DX: Z12.31 Encounter for screening mammogram for malignant neoplasm of breast (principal)
CPT/HCPCS: 77063; 77067

== ENCOUNTER → 2023-04-17 15:30 | Outpatient (BNV) | payer OTHER, SELFPAY | PROVIDERS: PCP Internal Medicine Geriatric Medicine; Visit Provider Radiology Diagnostic Radiology | DX: Z12.31 Encounter for screening mammogram for malignant neoplasm of breast (principal) | CPT/HCPCS: 77063; 77067 ==

== ENCOUNTER 2023-04-22 16:24 | Outpatient (REF) | payer OTHER, SELFPAY ==
[2023-04-23 12:46] LABS: BV Int Neg Control Negative (Negative); BV Int Pos Control Positive (Positive)
== END 2023-04-22 16:25 | disposition home or self-care (01) ==
LOC: HO.HHCLNP 16:24
PROVIDERS: Visit Provider Advanced Practice Midwife
DX: N89.8 Other specified noninflammatory disorders of vagina (principal)
CPT/HCPCS: 87480; 87510; 87660

== ENCOUNTER 2023-06-11 15:36 | Outpatient (REF) | payer OTHER, SELFPAY ==
[2023-06-11 18:15] LABS: Anion Gap 9 (12-20); Blood Urea Nitrogen 9 mg/dL (9-16); Calcium 8.9 mg/dL (8.4-10.2); Carbon Dioxide 28 mmol/L (22-29); Chloride 104 mmol/L (96-108); Estimated Glomerular Filt Rate > 60; Glucose Random 101 mg/dL (60-115); Potassium 3.7 mmol/L (3.3-5.1); Sodium 137 mmol/L (135-145)
[2023-06-11 18:18] LABS: Vitamin D 25-OH Total 13.2 ng/mL (>30)
[2023-06-12 05:37] LABS: Parathyroid Hormone Intact 123.6 pg/mL (8.7-77.1)
== END 2023-06-11 15:37 | disposition home or self-care (01) ==
LOC: HO.HHCL 15:36
PROVIDERS: Visit Provider Internal Medicine Geriatric Medicine
DX: E55.9 Vitamin D deficiency, unspecified (principal); E66.9 Obesity, unspecified; Z98.84 Bariatric surgery status
CPT/HCPCS: 36415; 80048; 82306; 83970

== ENCOUNTER 2023-09-23 13:16 | Outpatient (REF) | payer OTHER, SELFPAY ==
[2023-09-23 16:44] LABS: Alanine Aminotransferase 9 U/L (0-31); Albumin Level 3.9 g/dL (3.5-5.0); Alkaline Phosphatase 70 U/L (39-117); Anion Gap 9 (12-20); Aspartate Amino Transferase 13 U/L (5-31); Bilirubin Total 0.2 mg/dL (0.0-1.0); Blood Urea Nitrogen 8 mg/dL (9-16); Calcium 8.8 mg/dL (8.4-10.2); Carbon Dioxide 27 mmol/L (22-29); Chloride 104 mmol/L (96-108); Estimated Glomerular Filt Rate > 60; Glucose Random 70 mg/dL (60-115); Potassium 3.2 mmol/L (3.3-5.1); Sodium 137 mmol/L (135-145); Total Protein 7.3 g/dL (6.5-8.0)
== END 2023-09-23 13:17 | disposition home or self-care (01) ==
LOC: HO.HHCL 13:16
PROVIDERS: Visit Provider Internal Medicine Geriatric Medicine
DX: E55.9 Vitamin D deficiency, unspecified (principal); Z98.84 Bariatric surgery status
CPT/HCPCS: 36415; 80053; 82306; 83970

== ENCOUNTER 2023-10-01 09:01 | Outpatient (REF) | payer OTHER, SELFPAY ==
--- NOTE | 2023-10-01 09:05 | EMG_ITS ---
Right median and ulnar motor and sensory studies were performed. Right radial and median and lateral antecubital brachial sensory studies were performed and paraspinal muscles were tested with a needle. IMPRESSION: No significant abnormality noted on this study. MD EMILY Modi/EMMIE / [id number]
== END 2023-10-01 09:02 | disposition home or self-care (01) ==
LOC: HO.NEURO 09:01
PROVIDERS: PCP Internal Medicine Geriatric Medicine; Visit Provider Internal Medicine Geriatric Medicine
DX: R20.0 Anesthesia of skin (principal); R20.2 Paresthesia of skin
CPT/HCPCS: 95886; 95910

== ENCOUNTER 2024-04-21 15:18 | Outpatient (REF) | payer OTHER, SELFPAY ==
--- OUTSIDE RECORDS SUMMARY | 2024-04-21 19:04 | XMS_ITS | Encounter Summary ---
Author Organization [employer] [facility] Address [address] [place] [address] 7 [place] [address] Care Team Providers Care Capacity Management Specialist Name Role Phone Name, Ramirez SANDOVAL Primary Care Provider [phone] Reason for Visit * Reason Onset Date Comments Med Refill 03/02/2024 Encounter Details Date Type Department Care Team ([facility] st Contact Info) Description 03/02/2024 Refill [facility] [address] [place], [place] [phone] Name, MD Ramirez [address] [place] [address] History of bariatric surgery; Weight gain; Vitamin D deficiency Social History Tobacco Use Types Packs/Day Years Used Date Smoking Tobacco: Never Smokeless Tobacco: Never Alcohol Use Standard Drinks/Week Comments Never 0 (1 standard drink = 0.6 oz pur e alcohol) Alcohol Answer Date Recorded Frequency of Alcohol Consumption Not on file 09/20/2023 Average Number of Drinks Not on file 024 Frequency of Binge Drinking Not on file 08/26 Score 0 09/20/2023 Depression Answer Date Recorded Patient Health Questionnaire-9 Score 0 03/14/2023 Patient Health Questionnaire-9 Score 0 03/14/2023 Last PHQ-9: Questionnaire Data Not on file 0 03/14/2023 Housing Stability Answer Date Recorded What is your housing situation today? I have liliana jung 03/14/[address] you li ve. Do you have problems with any of the following? None of the above 03/14/2023 Food Insecurity Answer Date Recorded Within the past 12 months, y ou worried that your food would run out before you got money to buy more: Never True 03/14/2023 Within the past 12 months,th e food you bought just didn't last and you didn't have enough money to get more: Never True Transportation Answer Date Recorded In the past 12 months, has l ack of transportation kept you from medical appts, meetings, work or from getting things needed for daily living? No 03/14/2023 Utilities Answer Date Recorded In the past 12 months, has t he electric, gas, oil or water company threatened to shut off services in your home? No 03/14/2023 Depression Answer Date Recorded Patient Health Questionnaire-2 Score 0 03/14/2023 Comments No Sex and Gender Information Value Date Recorded Sex Assigned at Female 12/25/2021 10:36 AM EDT Legal Sex Female 10:36 AM EDT Gender Identity Female 12/25/2021 10:36 AM EDT Sexual Orientation Straight 12/25/2021 10 :36 AM EDT documented as of this encounter Plan of Treatment Upcoming Encounters Date Type Department Care Team (Late st Contact Info) Description 06/02/2024 2:45 PM EDT Office Visit [facility] [address] [place] [address] Name, MD Ramirez [address] [place] [address] documented as of this encounter Visit Diagnoses Diagnosis History of bariatric surgery Bariatric surgery status Weight gain Other symptoms concerning nutrition, metabolism, and development Vitamin D deficiency documented in this encounter Additional Health Concerns Assessment Noted Time PHQ-9 Depression Total Score: 0 03/14/19 24 9:24 AM EST documented as of this encounter Care Teams Capacity Management Specialist Relationship Specialty Start Date End Date Name, MD Raimrez [address] [place] [address] PCP - General Family Medicine 12/03/18 documented as of this encounter
--- OUTSIDE RECORDS SUMMARY | 2024-04-21 19:04 | XMS_ITS | Encounter Summary ---
Author Organization [employer] [facility] Address [address] [place] [address] 7 [place] [address] Care Team Providers Care Laboratory Animal Caretaker Name Role Phone Name, Ramirez SANDOVAL Primary Care Provider [phone] Encounter Details Date Type Department Care Team (Latest Contact Info) Description 08/23/2021 Abstract [facility] CONVERSIONS Dental, Provider, DDS Social History Tobacco Use Types Packs/Day Years Used Date Smoking Tobacco: Never Assessed Comments Unknown Sex and Gender Information Value Date Recorded Sex Assigned at Female 12/25/2021 10:36 AM EDT Legal Sex Female 10:36 AM EDT Gender Identity Female 12/25/2021 10:36 AM EDT Sexual Orientation Straight 12/25/2021 10 :36 AM EDT documented as of this encounter Plan of Treatment Upcoming Encounters Date Type Department Care Team (Late st Contact Info) Description 06/02/2024 2:45 PM EDT Office Visit [facility] MEDICINE [address] [place] [address] NameRamirez MD [address] [place] [address] documented as of this encounter Visit Diagnoses Not on filedocumented in this encounter Care Teams Laboratory Animal Caretaker Relationship Specialty Start Date End Date Ramirez Rene MD [address] [place] [address] PCP - General Family Medicine 12/03/18 documented as of this encounter
--- OUTSIDE RECORDS SUMMARY | 2024-04-21 19:04 | XMS_ITS | Encounter Summary ---
Author Organization [employer] [facility] Address [address] [place] [address] 7t [place] [address] Care Team Providers Care Meat Process Worker Name Role Phone Name, Ramirez SANDOVAL Primary Care Provider [phone] Reason for Visit * Reason Onset Date Comments appt 07/12/2023 Encounter Details Date Type Department Care Team ([facility] st Contact Info) Description 07/12/2023 Telephone [facility] [address] [place], [place] [phone] Iraj Landa, DDS [address] [place] [address] appt Social History Tobacco Use Types Packs/Day Years Used Date Smoking Tobacco: Never Smokeless Tobacco: Never Alcohol Use Standard Drinks/Week Comments Never 0 (1 standard drink = 0.6 oz pur e alcohol) Depression Answer Date Recorded Patient Health Questionnaire-9 [...] AM EDT documented as of this encounter Miscellaneous Notes * Telephone Encounter - Beth Mena - 07/12/2023 12:56 PM EDT Patient active requested since 05/05 for filling on tooth that she is currently having sensitivity and discomfort when eating cold . She would like to check in on status of her appt DR documented in this encounter Plan of Treatment Upcoming Encounters Date Type Department Care Team (Late st Contact Info) Description 06/02/2024 2:45 PM EDT Office Visit [facility] [address] [place] [address] Name, MD Ramirez [address] [place] [address] documented as of this encounter Visit Diagnoses Not on filedocumented in this encounter Additional Health Concerns Assessment Noted Time PHQ-9 Depression Total Score: 0 03/14/19 24 9:24 AM EST documented as of this encounter Care Teams Meat Process Worker Relationship Specialty Start Date End Date Name, MD Ramirez [address] [place] [address] PCP - General Family Medicine 12/03/18 documented as of this encounter
--- OUTSIDE RECORDS SUMMARY | 2024-04-21 19:04 | XMS_ITS | Encounter Summary ---
Author Organization [employer] [facility] Address [address] [place] [address] 7 [place] [address] Care Team Providers Care Automobile Wrecker Name Role Phone Name, Ramirez SANDOVAL Primary Care Provider [phone] Encounter Details Date Type Department Care Team (Latest Contact Info) Description 03/09/2020 Abstract [facility] CONVERSIONS Dental, Provider, DDS Social History Tobacco [...] Description 06/02/2024 2:45 PM EDT Office Visit [facility] [address] [place] [address] NameRamirez MD [address] [place] [address] documented as of this encounter Visit Diagnoses Not on filedocumented in this encounter Care Teams Automobile Wrecker Relationship Specialty Start Date End Date Ramirez Rene MD [address] [place] [address] PCP - General Family Medicine 12/03/18 documented as of this encounter
--- OUTSIDE RECORDS SUMMARY | 2024-04-21 19:05 | XMS_ITS | Encounter Summary ---
Author Organization [employer] [facility] Address [address] [place] [address] 7 [place] [address] Care Team Providers Care Cable Inspector Name Role Phone Name, Ramirez SANDOVAL Primary Care Provider [phone] Reason for Visit * Reason Onset Date Comments Med Refill 04/20/2024 Encounter Details Date Type Department Care Team ([facility] st Contact Info) Description 04/20/2024 Refill [facility] [address] [place], [place] [phone] Name, MD Ramirez [address] [place] [address] History of bariatric surgery; Weight gain; Vitamin [...] Description 06/02/2024 2:45 PM EDT Office Visit [facility] [address] [place] [address] Name, MD Ramirez [address] [place] [address] documented as of this encounter Visit Diagnoses Diagnosis History of bariatric surgery Bariatric surgery status Weight gain Other symptoms concerning nutrition, metabolism, and development Vitamin D deficiency documented in this encounter Additional Health Concerns Assessment Noted Time PHQ-9 Depression Total Score: 0 03/14/19 24 9:24 AM EST documented as of this encounter Care Teams Cable Inspector Relationship Specialty Start Date End Date Name, MD Ramirez [address] [place] [address] PCP - General Family Medicine 12/03/18 documented as of this encounter
--- OUTSIDE RECORDS SUMMARY | 2024-04-21 19:05 | XMS_ITS | Clinical Summary ---
Author Organization [employer] Address [address] [place] [address] 7t [place] [address] Care Team Providers Care Auto Transmission Mechanic Name Role Phone Name, Ramirez SANDOVAL Primary Care Provider [phone] Allergies No known active allergies Medications * This document contains information received from the source organization and may not represent a complete record from that organization. estradiol (Estrace) 0.1 MG/GM vaginal cream 1g vaginally at night x 2 weeks then 1 g vaginally twice a week ongoing after that 42.5 g 1 04/22/19 24 Active hydrocortisone 2.5 % cream Apply by topical route 1-2 times per day 60 g 1 06/11/19 24 Active calcium carbonate (Tums) 500 MG chewable tablet Chew 1 tablet (500 mg) 2 times daily. 60 tablet 11 09/20/19 24 025 Active cholecalcifero l (Vitamin D-3) 25 MCG (1000 UT) tablet Take 1 tablet (25 mcg) by mouth Once per day. 30 tablet 01/15/20 24 025 Active traZODone (Desyrel) 50 MG tablet TAKE 1 TABLET BY MOUTH AT BEDTIME 90 tablet 03/20/19 25 Active acetaminophen (Tylenol) 500 MG tablet Take 1 tablet (500 mg) by mouth every 6 (six) hours if needed for mild pain for up to 20 doses. 20 tablet 03/20/19 25 Active phentermine 15 MG capsuleIndicat ions:History of bariatric surgery,Weight gain,Vitamin D deficiency TAKE 1 CAPSULE BY MOUTH BEFORE BREAKFAST 30 capsule 04/21/19 25 Active phentermine 15 MG capsuleIndicat ions:History of bariatric surgery,Weight gain,Vitamin D deficiency TAKE 1 CAPSULE BY MOUTH BEFORE BREAKFAST 30 capsule 02/27/19 25 025 Discontinued(Re order (will not trigger notification to Pharmacy)) Active Problems Problem Noted Date Diagnosed Date Missing teeth, acquired 05/06/2023 Localized gingival recession, minimal 05/06/2023 Dental caries 05/06/2023 Fractured dental shinto with loss of materi al 03/25/2023 Ganglion cyst of dorsum of left wrist 02/06/2022 Chronic insomnia 02/06/2022 Thiamine deficiency 02/06/2022 Numbness of hand 02/06/2022 Migraine 02/06/2022 Obesity (BMI 35.0-39.9 without comorbidity) 01/25 Obstructive sleep apnea syndrome 02/06/2022 Vitamin D deficiency 02/06/2022 History of tubal ligation 02/06/2022 History of bariatric surgery 02/06/2022 S/P carpal tunnel release 02/06/2022 History of Helicobacter pylori infection 022 Encounters Date Type Department Care Team Description 04/20/[address] [facility] [address] [place] [address] Ramirez Rene MD History of bariatric surgery; Weight gain; Vitamin D deficiency 03/20/[address] [facility] [address] [place] [address] Iraj Landa DDS 03/20/[address] [facility] [address] [place] [address] Ramirez Rene MD 03/09/[address] [facility] [address] [place] [address] Marjorie, Estefani 03/09/[address] [facility] [address] [place] [address] Marjorie, Estefani 03/06/[address] [facility] [address] [place] [address] Marjorie, Estefani 03/02/[address] [facility] [address] [place] [address] Ramirez Rene MD History of bariatric surgery; Weight gain; Vitamin D deficiency 02/28/[address] [facility] [address] [place] [address] Name, MD Ramirez History of bariatric surgery; Weight gain; Vitamin D deficiency 02/24/[address] [facility] [address] [place] [address] Spencer [employer] mcdonald Mar Recall from Last 3 Months Immunizations Name Administration Dates Next Due Influenza injectable quadriv alent IIV4 with preservative 01/12/2019 Influenza injectable quadrivalent preservative f ree 03/11/2020 Moderna Covid-19 Vaccine 12+ 06/18/2020,05/22/19 21 Tdap 01/12/2019 Social History Tobacco Use Types Packs/Day Years Used Date Smoking Tobacco: Never Smokeless Tobacco: Never Tobacco Cessation:Counseling Given: Not Answered Alcohol Use Standard Drinks/Week Comments Never 0 [...] is your housing situation today? I have lilianadale jung 03/14/[address] you [...] Orientation Straight 12/25/2021 10 :36 AM EDT Last Filed Vital Signs Vital Sign Reading Time Taken Comments Blood Pressure 139/85 09/21/2023 6:26 AM EDT Pulse 80 09/20/2023 3:43 PM EDT Temperature 36.2 ??C (97.1 ??F) 06/11/2023 3:01 PM ED T Respiratory Rate 14 09/20/2023 3:43 PM EDT Oxygen Saturation 98% 09/20/2023 3:43 PM EDT Inhaled Oxygen Concentration - - Weight 71 kg (156 lb 9.6 oz) 09/20/2023 3:43 PM EDT Height 157.5 cm (5' 2 ) 09/20/2023 3:43 PM EDT Body Mass Index 28.64 09/20/2023 3:43 PM EDT Plan of Treatment Upcoming Encounters Date Type Department Care Team (Late st Contact Info) Description 06/02/2024 2:45 PM EDT Office Visit [facility] [address] [place] [address] Name, MD Ramirez [address] [place] [address] Health Maintenance Due Date Last Done Comments HIV Screening 1980 Hepatitis C Screening 02/04/1998 Hepatitis B Vaccines (1 of 3 - 19+ 3-dose series) 02/04/1999 Pap Smear 03/17/2023 03/17/2020 Dental Oral Exam 09/24/2023 03/25/2023, , 09/15/2020, Additional history exists COVID-19 Vaccine ( season) 2023 06/18/2020, 05/21/2020 Influenza Vaccine (#1) 2023 03/11/2020, 2018 Dental Prophylaxis 11/07/2023 05/06/2023, 0 08/23/2021, 09/15/2020, Additional history exists Depression Screening 03/14/2024 03/14/2023, 03/14/19 SDOH Screening 03/14/2024 03/14/2023 Dental X-Ray: Bitewings 03/26/2024 03/25/19 24, 08/23/2021, 02/23/2020, Additional history exists Family Planning (PISQ) 04/22/2024 04/22/2023 Alcohol/Substance Use Screening 09/19/2024 09/20/2023 Tobacco Screening 09/19/2024 09/20/2023 Cervical Cancer Screening 03/17/2025 HPV/Cotest 03/17/2025 03/17/2020 Mammogram 04/17/2025 04/17/2023, 05/08/2021 Dental X-Ray: Full Mouth 03/26/2026 03/25/2023, 1210/2019 Lipid Panel 12/18/2026 12/18/2021 DTaP/Tdap/Td Vaccines (2 - Td or Tdap) 01/12/2029 01/12/2019 Zoster Vaccines (1 of 2) 02/04/2030 RSV Patients and Patients Aged 60 years or older (1 - 1-dose 75+ series) 02/04/2055 HIB Vaccines Aged Out No longer eligi ble based on patient's age to complete this topic HPV Vaccines Aged Out No longer eligi ble based on patient's age to complete this topic Hepatitis A Vaccines Aged Out No long er eligible based on patient's age to complete this topic IPV Vaccines Aged Out No longer eligi ble based on patient's age to complete this topic Meningococcal Vaccine Aged Out No nusrat vickie eligible based on patient's age to complete this topic Pneumococcal Vaccine: Pediatrics (0 to 5 Years) and At-Risk Patients (6 to 49) Years) Aged Out No longer eligible based on patient's age to complete this topic RSV under 20 months Aged Out No longe r eligible based on patient's age to complete this topic Rotavirus Vaccines Aged Out No longer eligible based on patient's age to complete this topic Procedures Procedure Name Priority Date/Time Associated Diagnosis Comments PROPHYLAXIS - ADULT Routine 05/06/2023 8 :00 AM EDT BI MAMMOGRAM SCREENING TOMOSYNTHESIS BILATERAL Routine 04/17/2023 3:30 PM EST INTRAORAL - COMPLETE SERIES OF RADIOGRAPHIC IMAGES Routine 03/25/2023 2:30 PM EST PERIODIC ORAL EVALUATION - ESTABLISHED PATIENT Routine 03/25/2023 2:30 PM EST LIPID PANEL, STANDARD Routine 12/18/2021 11:08 AM EDT HPV MRNA E6/E7 Routine 03/17/2020 11:18 AM EST THINPREP PAP Routine 03/17/2020 11:18 AM EST from Last 3 Months or Most Recently Relevant to Health Maintenance Results * BI Mammogram Screening Tomosynthesis Bilateral (04/17/2023 3:30 PM EST) Anatomical Region Laterality Modality Breast Bilateral Mammography 04/17/2023 3:30 PM EST Narrative 05/11/2023 10:11 PM EDT ? [facility] ? [address] ?[place] [address] ? Mammography Report ? Signed ? Patient: Alcantar,Yisel D ?MR#: [id number] ?? [id number] ? : 1980 ?Acct:[id number] ? Age/Sex: 43 / F ?ADM Date: //24 ? Loc: HO.MAMMO ? Attending Dr: Ramirez Name MD ? Ordering Physician: Name,Ramirez MD ?Results: 1Negative ? Date of Service: //24 ?Follow Up: 1 Year From Orig ?? inal Mammogram ? Procedure(s): MM tomosynthesis screening BI ?? Accession Number(s): [id number] ? cc: Name,Ramirez SANDOVAL ? EXAMINATION: ?? MM SCREENING DIGITAL BREAST TOMOSYNTHESIS, BILATERAL ? CLINICAL INFORMATION: ? Screening. Asymptomatic. ? COMPARISON: ?? Mammography: This study is compared with prior exams dating back to ?? 2020. ? TECHNIQUE: ?? Digital breast tomosynthesis is performed in both the craniocaudal and ?? mediolateral oblique views along with computer-aided detection (CAD). ?? Synthesized 2D images are generated from the tomosynthesis. ? FINDINGS: ?? The breasts are heterogeneously dense, which may obscure small masses ?? (ACR BI-RADS breast composition Category c). ? There are no significant masses, abnormal calcifications, or other ?? abnormalities. ? MM/MM tomosynthesis screening BI ?? IMPRESSION: ?? No mammographic evidence of malignancy. ? ASSESSMENT: ? BI-RADS BI-RADS 1 - Negative ? RECOMMENDATION: ?? Routine annual mammography screening. ? 1 year F/U ? This examination should not preclude the clinical evaluation of a ?? suspicious palpable abnormality. ? This patient's information was entered into a reminder system with a ?? target due date for their next mammogram. ? Dictated By: ?Daisha Muniz MD ? Signed By: ?<Electronically signed by Daisha Muniz MD in OV> ? 05/11/232206 ? DD/ 29 ? TD/TT: ? Online User Experience Strategist: ? Procedure Note Richard Hernández - 05/11/2023 [facility] [address] [place] [address] [place] [address] Mammography Report Signed Patient: Yisel Alcantar DMR#: [id number] : 1980Acct:[id number] Age/Sex: 43 / FADM Date: 04/17/23 Loc: HO.MAMMO Attending Dr: Ramirez Rene MD Ordering Physician: Ramirez Rene MDResults: 1Negative Date of Service: 04/17/23Follow Up: 1 Year From Orig ina Mammogram Procedure(s): MM tomosynthesis screening BI Accession Number(s): [id number] cc: NameRamirez MD EXAMINATION: MM SCREENING DIGITAL BREAST TOMOSYNTHESIS, BILATERAL CLINICAL INFORMATION: Screening. Asymptomatic. COMPARISON: Mammography: This study is compared with prior exams dating back to 2020. TECHNIQUE: Digital breast tomosynthesis is performed in both the craniocaudal and mediolateral oblique views along with computer-aided detection (CAD). Synthesized 2D images are generated from the tomosynthesis. FINDINGS: The breasts are heterogeneously dense, which may obscure small masses (ACR BI-RADS breast composition Category c). There are no significant masses, abnormal calcifications, or other abnormalities. MM/MM tomosynthesis screening BI IMPRESSION: No mammographic evidence of malignancy. ASSESSMENT: BI-RADS BI-RADS 1 - Negative RECOMMENDATION: Routine annual mammography screening. 1 year F/U This examination should not preclude the clinical evaluation of a suspicious palpable abnormality. This patient's information was entered into a reminder system with a target due date for their next mammogram. Dictated By: Daisha Muniz MD Signed By: <Electronically signed by Daisha Muniz MD in OV> 05/11/23 2207 DD/ 1530 TD/TT: Online User Experience Strategist: Ramirez Rene MD IM BI PROCEDURES Final Result * LIPID PANEL, STANDARD (12/18/2021 11:08 AM EDT) Chol/HDLC Ratio 2.9 <5.0 (calc) [facility] Cholesterol, Total 146 <200 mg/dL [facility] HDL Cholesterol 50 > OR = 50 mg/dL [facility] LDL Cholesterol 79 mg/dL (calc) [facility] Comment: Reference range: <100 ?? Desirable range <100 mg/dL for primary prevention; ?? <70 mg/dL for patients with CHD or diabetic patients ?? with > or = 2 CHD risk factors. ?? LDL-C is now calculated using the Darío ?? calculation, which is a validated novel method providing ?? better accuracy than the Friedewald equation in the ?? estimation of LDL-C. ?? Alonso NIÑO et al. PALLAVI. 2013;310(19): 2844-9374 ?? (http://education.Sh[employer]/faq/UKG260) Non-HDL Cholesterol 96 <130 mg/dL (calc) [facility] Comment: For patients with diabetes plus 1 major ASCVD risk ?? factor, treating to a non-HDL-C goal of <100 mg/dL ?? (LDL-C of <70 mg/dL) is considered a therapeutic ?? option. Triglycerides 90 <150 mg/dL CONVE RTED [facility]GAC[facility] LAB[facility] 12/18/2021 11:0 8 AM EDT us Ramirez Name LAB BLOOD ORDERABLES Final Resul t [facility] * THINPREP PAP (03/17/2020 11:18 AM EST) Clinical Information: None given [facility] COMMENT SEE COMMENT [facility] Comment: EXPLANATORY NOTE: ? The Pap is a screening test for cervical cancer. It is ?? not a diagnostic test and is subject to false negative ?? and false positive results. It is most reliable when a ?? satisfactory sample, regularly obtained, is submitted ?? with relevant clinical findings and history, and when ?? the Pap result is evaluated along with historic and ?? current clinical information. ?? Inspector Ball Points : SEE COMMENT [facility] Comment: MXD, CT (ASCP) CT screening location: [address] ??[address] Interpretation/R esult: Negative for intraepithelial lesion or malignancy. [facility] LMP: NONE GIVEN [facility] Prev. BX: NONE GIVEN [facility] Prev. PAP: NONE GIVEN [facility] SOURCE: None given [facility] Statement Of Adequacy: SEE COMMENT [facility] Comment: Satisfactory for evaluation. Endocervical/transformation zone component absent. Age and/or menstrual status not provided 03/17/2020 11:1 8 AM EST Talia FERNANDEZ LAB PATHOLOGY ORDERABLES Final Result Performing Organization Address [facility] Phone Number [facility] [address] * HPV mRNA E6/E7 (03/17/2020 11:18 AM EST) HPV nRNA E6/E7 Not Detected Not Detected [facility] Comment: This test was performed using the APTIMA HPV Assay ([employer] This assay detects E6/E7 viral messenger RNA (mRNA) from 14 high-risk HPV types (16,18,31,33,35,39,45,51,52,56,58,59,66,68). ?? The analytical performance characteristics of this assay have been determined by [employer]. The modifications have not been cleared or approved by the FDA. This assay has been validated pursuant to the CLIA regulations and is used for clinical purposes. 03/17/2020 11:1 8 AM EST Talia FERNANDEZ LAB BLOOD ORDERABLES Urvashi l Result Performing Organization Address [facility] Phone Number [facility] [address] from Last 3 Months or Most Recently Relevant to Health Maintenance [place] [address] , [address] [place] [id number] [employer] P[employer] DENTAL - [employer] DENT[employer] PPO Care Teams Auto Transmission Mechanic Relationship Specialty Start Date End Date Name, MD Ramirez [address] [place] [id number] PCP - General Family Medicine 12/03/18
--- OUTSIDE RECORDS SUMMARY | 2024-04-21 19:05 | XMS_ITS | Encounter Summary ---
Author Organization [employer] [facility] Address [address] [place] [address] 7t [place] [address] Care Team Providers Care Senior Java Ui Developer Name Role Phone Name, Ramirez SANDOVAL Primary Care Provider [phone] Reason for Visit * Reason Onset Date Comments Appointment Request 04/02/2023 Encounter Details Date Type Department Care Team ([facility] st Contact Info) Description 04/02/2023 Telephone [facility] [address] [place] [address] Name, MD Ramirez [address] [place] [address] Appointment Request Social History Tobacco Use Types Packs/Day Years [...] Patient Health Questionnaire-2 Score 0 03/14/2023 Comments Unknown Sex and Gender Information Value Date Recorded Sex Assigned at Female 12/25/2021 10:36 AM EDT Legal Sex Female 10:36 AM EDT Gender Identity Female 12/25/2021 10:36 AM EDT Sexual Orientation Straight 12/25/2021 10 :36 AM EDT documented as of this encounter Miscellaneous Notes * Telephone Encounter - Elisha Yoo - 04/02/2023 2:27 PM EST Tc from pt requesting appt with Dr Jalloh, pt has a referral. documented in this encounter Plan of Treatment Upcoming Encounters Date Type Department Care Team (Late st Contact Info) Description 06/02/2024 2:45 PM EDT Office Visit [facility] [address] [place], [place] [phone] Name, MD Ramirez [address] [place] [address] documented as of this encounter Visit Diagnoses Not on filedocumented in this encounter Additional Health Concerns Assessment Noted Time PHQ-9 Depression Total Score: 0 03/14/19 24 9:24 AM EST documented as of this encounter Care Teams Senior Java Ui Developer Relationship Specialty Start Date End Date Name, MD Ramirez [address] [place], [place] [phone] PCP - General Family Medicine 12/03/18 documented as of this encounter
--- OUTSIDE RECORDS SUMMARY | 2024-04-21 19:05 | XMS_ITS | Encounter Summary ---
Author Organization [employer] [facility] Address [address] [place] [address] 7t [place] [address] Care Team Providers Care Medical Field Representative Name Role Phone Name, Ramirez SANDOVAL Primary Care Provider [phone] Reason for Visit * Reason Onset Date Comments Med Refill 03/20/2024 Encounter Details Date Type Department Care Team (Late st Contact Info) Description 03/20/[address] [facility] [address] [place] [address] Iraj Landa, DDS [address] [place] [address] Social History Tobacco Use Types Packs/Day Years [...] 06/02/2024 2:45 PM EDT Office Visit [facility] [address] [place] [address] Name, MD Ramirez [address] [place] [address] documented as of this encounter Visit Diagnoses Not on filedocumented in this encounter Additional Health Concerns Assessment Noted Time PHQ-9 Depression Total Score: 0 03/14/19 24 9:24 AM EST documented as of this encounter Care Teams Medical Field Representative Relationship Specialty Start Date End Date Name, MD Ramirez [address] [place] [address] PCP - General Family Medicine 12/03/18 documented as of this encounter
--- OUTSIDE RECORDS SUMMARY | 2024-04-21 19:05 | XMS_ITS | Encounter Summary ---
Author Organization [employer] [facility] Address [address] [place] [address] [address] [address] Care Team Providers Care Career Center Director Name Role Phone Name, Ramirez SANDOVAL Primary Care Provider [phone] Reason for Visit * Reason Onset Date Comments Med Refill 06/26/2022 Encounter Details Date Type Department Care Team (Late st Contact Info) Description 06/26/2022 Refill [facility] MED[facility] [address] [place], [place] [phone] Name, MD Ramirez [address] [place] [address] Chronic insomnia Social History Tobacco Use Types Packs/Day Years Used Date Smoking Tobacco: Never Smokeless Tobacco: Never Alcohol Use Standard Drinks/Week Comments Never 0 (1 standard drink = 0.6 oz pur e alcohol) Comments Unknown Sex and Gender Information Value Date Recorded Sex Assigned at Female 12/25/2021 10:36 AM EDT Legal Sex Female 10:36 AM EDT Gender Identity Female 12/25/2021 10:36 AM EDT Sexual Orientation Straight 12/25/2021 10 :36 AM EDT documented as of this encounter Miscellaneous Notes * Telephone Encounter - Joseph Quigley - 06/26/2022 3:57 PM EDT Tc from pt requesting med refill zolpidem (Ambien) 5 MG tablet documented in this encounter Plan of Treatment Upcoming Encounters Date Type Department Care Team (Late st Contact Info) Description 06/02/2024 2:45 PM EDT Office Visit [facility] MED[facility]INE [address] [place] [address] Name, [place] [address] documented as of this encounter Visit Diagnoses Diagnosis Chronic insomnia Insomnia, unspecified documented in this encounter Care Teams Career Center Director Relationship Specialty Start Date End Date Name, MD Ramirez [address] [place] [address] PCP - General Family Medicine 12/03/18 documented as of this encounter
== END 2024-04-21 15:19 | disposition home or self-care (01) ==
LOC: HO.MAMMO 15:18
PROVIDERS: PCP Internal Medicine Geriatric Medicine; Visit Provider Internal Medicine Geriatric Medicine
DX: Z12.31 Encounter for screening mammogram for malignant neoplasm of breast (principal)
CPT/HCPCS: 77063; 77067

== ENCOUNTER → 2024-04-21 15:30 | Outpatient (BNV) | payer OTHER, SELFPAY | PROVIDERS: PCP Internal Medicine Geriatric Medicine; Visit Provider Internal Medicine | DX: Z12.31 Encounter for screening mammogram for malignant neoplasm of breast (principal) | CPT/HCPCS: 77063; 77067 ==

== ENCOUNTER 2024-06-04 08:41 | Outpatient (REF) | payer OTHER, SELFPAY ==
--- OUTSIDE RECORDS SUMMARY | 2024-06-04 09:02 | XMS_ITS | Encounter Summary ---
Author Organization [employer] [facility] Address [address] [place] [address] 7 [place] [address] Care Team Providers Care Director Hr Communications Name Role Phone Name, Ramirez SANDOVAL Primary Care Provider [phone] Encounter Details Date Type Department Care Team (Latest Contact Info) Description 08/23/[address] [facility] CONVERSIONS Dental, Provider, DDS Social [...] Care Team (Late st Contact Info) Description 06/11/2024 1:[address] [facility] MEDICINE [address] [place] [address] documented as of this encounter Visit Diagnoses Not on filedocumented in this encounter Care Teams Director Hr Communications Relationship Specialty Start Date End Date Name, MD Ramirez [address] [place] [address] PCP - General Family Medicine 12/03/18 documented as of this encounter
--- OUTSIDE RECORDS SUMMARY | 2024-06-04 09:02 | XMS_ITS | Encounter Summary ---
Author Organization [employer] [facility] Address [address] [place] [address] 7t [place] [address] Care Team Providers Care Carbide Tool Maker Name Role Phone Name, Ramirez SANDOVAL Primary Care Provider [phone] Reason for Visit * Reason Onset Date Comments appt 07/12/2023 Encounter Details Date Type Department Care Team ([facility] st Contact Info) Description 07/12/[address] [facility] ADULT DENTAL [address] [place], [place] [phone] Iraj Landa, DDS [address] [place] [address] appt Social History Tobacco Use Types Packs/Day [...] Info) Description 06/11/2024 1:30 PM EDT Telemedicine [facility] MEDICINE [address] [place] [address] documented as of this encounter Visit Diagnoses Not on filedocumented in this encounter Additional Health Concerns Assessment Noted Time PHQ-9 Depression Total Score: 0 03/14/19 24 9:24 AM EST documented as of this encounter Care Teams Carbide Tool Maker Relationship Specialty Start Date End Date Name, MD Ramirez [address] [place] [address] PCP - General Family Medicine 12/03/18 documented as of this encounter
--- OUTSIDE RECORDS SUMMARY | 2024-06-04 09:02 | XMS_ITS | Encounter Summary ---
Author Organization [employer] [facility] Address [address] [facility] 7t [place] [address] Care Team Providers Care Bond Broker Name Role Phone Name, Ramirez SANDOVAL Primary Care Provider [phone] Encounter Details Date Type Department Care Team (Latest Contact Info) Description 06/02/2024 Travel Social History Tobacco Use Types Packs/Day Years [...] Info) Description 06/11/2024 1:30 PM EDT Telemedicine [facility] MEDICINE [address] [place] [address] documented as of this encounter Visit Diagnoses Not on filedocumented in this encounter Additional Health Concerns Assessment Noted Time PHQ-9 Depression Total Score: 0 03/14/19 24 9:24 AM EST documented as of this encounter Care Teams Bond Broker Relationship Specialty Start Date End Date Name, MD Ramirez [address] [place] [address] PCP - General Family Medicine 12/03/18 documented as of this encounter
--- OUTSIDE RECORDS SUMMARY | 2024-06-04 09:02 | XMS_ITS | Encounter Summary ---
Author Organization [employer] [facility] Address [address] [place] [address] 7t [place] [address] Care Team Providers Care Sewer And Drain Technician Name Role Phone Name, Ramirez SANDOVAL Primary Care Provider [phone] Reason for Visit * Reason Onset Date Comments Med Refill 03/02/2024 Encounter Details Date Type Department Care Team ([facility] st Contact Info) Description 03/02/2024 Refill [facility] MEDICINE [address] [place], [place] [phone] Name, MD Ramirez [address] [place] [address] History of bariatric surgery; Weight gain; Vitamin [...] enough money to get more: Never True 01/ Transportation Answer Date Recorded In the past [...] Info) Description 06/11/2024 1:30 PM EDT Telemedicine [facility] MEDICINE [address] [place] [address] documented as of this encounter Visit Diagnoses Diagnosis History of bariatric surgery Bariatric surgery status Weight gain Other symptoms concerning nutrition, metabolism, and development Vitamin D deficiency documented in this encounter Additional Health Concerns Assessment Noted Time PHQ-9 Depression Total Score: 0 03/14/19 24 9:24 AM EST documented as of this encounter Care Teams Sewer And Drain Technician Relationship Specialty Start Date End Date Name, MD Ramirez [address] [place] [address] PCP - General Family Medicine 12/03/18 documented as of this encounter
--- OUTSIDE RECORDS SUMMARY | 2024-06-04 09:02 | XMS_ITS | Encounter Summary ---
Author Organization [employer] [facility] Address [address] [place] [address] 7t [place] [address] Care Team Providers Care Certified Cytotechnologist Name Role Phone Ramirez Rene MD Primary Care Provider [phone] Reason for Referral * Consultation (Routine) - Authorized Specialty Diagnoses / Procedures Referred By Ja crowell Referred To Contact Family Medicine Diagnoses Ramirez Chamberlain MD [address] [place] [address] Phone: tel: fax: Referral ID Status Reason Start Date Expiration Date Visits Requested Visits Authorized [id number] Authorized Specialty Services Required 06/02/2024 06/02/2025 1 1 Reason for Visit * Reason Comments Annual Exam Encounter Details Date Type Department Care Team (Late st Contact Info) Description 06/02/2024 2:45 PM EDT Office Visit [facility] MEDICINE [address] [place] [phone] Ramirez Rene MD [address] [place] [address] PE (physical exam), annual (Primary Dx); Elevated blood pressure reading; Chronic insomnia; Situational stress; History of bariatric surgery; Overweight (BMI 25.0-29.9); Vitamin D deficiency; Elevated parathyroid hormone; Screening examination for STI; Rash Social History Tobacco Use Types Packs/Day Years [...] AM EDT documented as of this encounter Last Filed Vital Signs Vital Sign Reading Time Taken Comments Blood Pressure 154/96 06/02/2024 2:49 PM EDT Pulse 74 06/02/2024 2:49 PM EDT Temperature 37.2 ??C (99 ??F) 06/02/2024 2:49 PM EDT Respiratory Rate 21 06/02/2024 2:49 PM EDT Oxygen Saturation 98% 06/02/2024 2:49 PM EDT Inhaled Oxygen Concentration - - Weight 70.5 kg (155 lb 6.4 oz) 06/02/2024 2:49 P M EDT Height 157.5 cm (5' 2 ) 06/02/2024 2:49 PM EDT Body Mass Index 28.42 06/02/2024 2:49 PM EDT documented in this encounter Progress Notes * Ramirez Rene MD - 06/02/2024 2:45 PM EDT Subjective Patient ID: Yisel Alcantar is a 44 y.o. female who presents for Annual Exam. Patient comes for a physical exam. She tells me she is very stressed. She is not sleeping well. Sheis having monetary difficulties. She is having a hard time affording her utilities and she is worried about upcoming taxes also. Her BP is elevated today. Repeat blood pressure was only slightly better. She does not have a history of hypertension. She denies severe depression, she denies significant anhedonia, no suicidal ideation. She is currently on trazodone that is not helping as much for hersymptoms anymore. In terms of health maintenance: She is up-to-date with mammograms, Pap smear, she is not sexually active, she is status post tubal ligation. She is taking calcium and vitamin D supplements as prescribed (she has personal history of vitamin D deficiency in the setting of previous bariatric surgery).She refused any vaccination today. She agrees with evaluation with fasting blood work and she is interested in STI testing as well. Review of Systems Constitutional: Negative for chills and fever. HENT: Negative for sore throat. Respiratory: Negative for cough, shortness of breath and wheezing. Cardiovascular: Negative for chest pain, palpitations and leg swelling. Gastrointestinal: Negative for abdominal pain. Psychiatric/Behavioral: Positive for sleep disturbance. Negative for self-injury and suicidal ideas. The patient is nervous/anxious. Visit Vitals BP (!) 154/96 (BP Location: Left arm, Patient Position: Sitting, BP Cuff Size: Adult) Pulse 74 Temp 99 ??F (37.2 ??C) (Temporal) Resp 21 Ht 5' 2 (1.575 m) Wt 155 lb 6.4 oz (70.5 kg) LMP 05/26/2024 Comment: Dec-Feb didn't get period SpO2 98% BMI 28.42 kg/m?? OB Status Having periods Smoking Status Never BSA 1.76 m?? Objective Physical Exam Constitutional: Appearance: Normal appearance. Cardiovascular: Rate and Rhythm: Normal rate and regular rhythm. Heart sounds: No murmur heard. No gallop. Pulmonary: Effort: Pulmonary effort is normal. No respiratory distress. Breath sounds: Normal breath sounds. No wheezing. Musculoskeletal: Right lower leg: No edema. Left lower leg: No edema. Neurological: Mental Status: She is alert. Assessment/Plan Diagnoses and all orders for this visit: PE (physical exam), annual Comments: I recommend regular physical activity Avoid sweets and soda Check fasting blood work listed below Orders: - CBC auto differential; Future Elevated blood pressure reading Comments: I prescribed the patient a BP monitor for home use. Follow-up televisit with team nurses next week for BP recheck. If BP is persistently elevated I will consider starting medication and also discontinuing her phentermine Chronic insomnia Comments: Exacerbated by recent stress. I will double her dose of trazodone. Situational stress History of bariatric surgery Comments: She is recommended to continue her calcium and vitamin D supplement. Check blood work listed below. Orders: - Comprehensive Metabolic Panel; Future - Vitamin D, 25-Hydroxy, Total, Immunoassay; Future - Lipid Panel, Standard; Future - CBC auto differential; Future Overweight (BMI 25.0-29.9) Comments: Continue phentermine for now. She lost weight and her weight has remained stable since she is on the medication. I suspect elevated blood pressure today has to do with her current stress however if BP is persistently elevated at home I will discontinue the phentermine. Vitamin D deficiency Comments: Continue vitamin D and calcium supplements and recheck blood work listed below Orders: - Comprehensive Metabolic Panel; Future - Vitamin D, 25-Hydroxy, Total, Immunoassay; Future - Lipid Panel, Standard; Future - PTH, Intact Without Calcium; Future Elevated parathyroid hormone - PTH, Intact Without Calcium; Future Screening examination for STI Comments: I will order STI testing at her request. Orders: - HIV-1/2 Antigen and Antibodies, Fourth Generation, with Reflexes; Future - Hepatitis C Antibody with Reflex to HCV, RNA, Quantitative, Real-Time PCR; Future - Hepatitis B surface antigen, EIA; Future - Hepatitis B Surface Antibody, Qualitative; Future - RPR (Monitor) with Reflex to Titer; Future - Chlamydia/N. Gonorrhoeae RNA, TMA, Urogenitial Rash Comments: At the end of the visit she complained of recurrent rash in the nasal area consistent with rosacea.She requested referral to dermatology and I agreed. Orders: - Referral to [facility] Derm Skin Adult; Future Other orders - Blood Pressure kit; Use once a day - traZODone (Desyrel) 100 MG tablet; Take 1 tablet (100 mg) by mouth at bedtime. documented in this encounter Plan of Treatment Upcoming Encounters Date Type Department Care Team (Late st Contact Info) Description 06/11/2024 1:30 PM EDT Telemedicine [facility] MEDICINE [address] [place] [phone] Scheduled Orders Name Type Priority Associated Diagnoses Orde r Schedule Comprehensive Metabolic Panel Lab Routine History of bariatric surgery Vitamin D deficiency Expected: 06/02/2024 (Approximate), Expires: 06/02/2025 Vitamin D, 25-Hydroxy, Total, Immunoassay Lab Routine History of bariatric surgery Vitamin D deficiency Expected: 06/02/2024 (Approximate), Expires: 06/02/2025 Lipid Panel, Standard Lab Routine History of bariatric surgery Vitamin D deficiency Expected: 06/02/2024 (Approximate), Expires: 06/02/2025 PTH, Intact Without Calcium Lab Routine Vitamin D deficiency Elevated parathyroid hormone Expected: 06/02/2024, Expires: 06/02/2025 HIV-1/2 Antigen and Antibodies, Fourth Generation, with Reflexes Lab Routine Screening examination for STI Expected: 06/02/2024 (Approximate), Expires: 06/02/2025 Hepatitis C Antibody with Reflex to HCV, RNA, Quantitative, Real-Time PCR Lab Routine Screening examination for STI Expected: 06/02/2024, Expires: 06/02/2025 Hepatitis B surface antigen, EIA Lab Routine Screening examination for STI Expected: 06/02/2024 (Approximate), Expires: 06/02/2025 Hepatitis B Surface Antibody, Qualitative Lab Routine Screening examination for STI Expected: 06/02/2024 (Approximate), Expires: 06/02/2025 RPR (Monitor) with Reflex to??Titer Lab Routine Screening examination for STI Expected: 06/02/2024, Expires: 06/02/2025 Chlamydia/N. Gonorrhoeae RNA, TMA, Urogenitial Microbiology Routine Screening examination for STI Ordered: 06/02/2024 CBC auto differential Lab Routine History of bariatric surgery PE (physical exam), annual Expected: 06/02/2024 (Approximate), Expires: 06/02/2025 Scheduled Referrals Name Type Priority Associated Diagnoses Orde r Schedule Referral to [facility] Derm Skin Adult Outpatient Referral Routine Rash Expected: 06/02/2024 (Approximate), Expires: 06/02/2025 documented as of this encounter Visit Diagnoses Diagnosis PE (physical exam), annual- Primary Elevated blood pressure reading Elevated blood pressure reading without diagnosis of hypertension Chronic insomnia Insomnia, unspecified Situational stress Other psychological or physical stress, not elsewhere classified History of bariatric surgery Bariatric surgery status Overweight (BMI 25.0-29.9) Overweight Vitamin D deficiency Elevated parathyroid hormone Screening examination for STI Rash Rash and other nonspecific skin eruption documented in this encounter Additional Health Concerns Assessment Noted Time PHQ-9 Depression Total Score: 0 03/14/19 24 9:24 AM EST documented as of this encounter Care Teams Certified Cytotechnologist Relationship Specialty Start Date End Date Name, MD Ramirez [address] [place] [address] PCP - General Family Medicine 12/03/18 documented as of this encounter
--- OUTSIDE RECORDS SUMMARY | 2024-06-04 09:02 | XMS_ITS | Encounter Summary ---
Author Organization [employer] [facility] Address [address] [place] [address] [address] [place] [address] Care Team Providers Care Mammalogist Name Role Phone Name, Ramirez SANDOVAL Primary Care Provider [phone] Encounter Details Date Type Department Care Team (Latest Contact Info) Description 03/09/2020 Abstract [facility] CONVERSIONS Dental, Provider, DDS Social History Tobacco [...] EDT Telemedicine [facility] MEDICINE [address] [place] [address] documented as of this encounter Visit Diagnoses Not on filedocumented in this encounter Care Teams Mammalogist Relationship Specialty Start Date End Date Name, MD Ramirez [address] [place] [address] PCP - General Family Medicine 12/03/18 documented as of this encounter
--- OUTSIDE RECORDS SUMMARY | 2024-06-04 09:02 | XMS_ITS | Encounter Summary ---
Author Organization [employer] [facility] Address [address] [place] [address] 7t [place] [address] Care Team Providers Care Exhaust Machine Operator Name Role Phone Name, Ramirez SANDOVAL Primary Care Provider [phone] Reason for Visit * Reason Onset Date Comments Appointment Request 04/02/2023 Encounter Details Date Type Department Care Team ([facility] st Contact Info) Description 04/02/2023 Telephone [facility] MEDICINE [address] [place] [address] Name, MD Ramirez [address] [place] [address] Appointment Request Social History Tobacco Use Types [...] Info) Description 06/11/2024 1:30 PM EDT Telemedicine [facility] MEDICINE [address] [place] [address] documented as of this encounter Visit Diagnoses Not on filedocumented in this encounter Additional Health Concerns Assessment Noted Time PHQ-9 Depression Total Score: 0 03/14/19 24 9:24 AM EST documented as of this encounter Care Teams Exhaust Machine Operator Relationship Specialty Start Date End Date Name, MD Ramirez [address] [place] [address] PCP - General Family Medicine 12/03/18 documented as of this encounter
--- OUTSIDE RECORDS SUMMARY | 2024-06-04 09:02 | XMS_ITS | Clinical Summary ---
Author Organization [employer] Address [address] [place] [address] 7t [place] [address] Care Team Providers Care Financial Compliance Manager Name Role Phone Name, Ramirez SANDOVAL Primary Care Provider [phone] Allergies No known active allergies Medications * [...] by mouth Once per day. 30 tablet 11 01/15/20 24 025 Active acetaminophen (Tylenol) 500 MG tablet Take 1 tablet (500 mg) by mouth every 6 (six) hours if needed for mild pain for up to 20 doses. 20 tablet 03/20/19 25 Active phentermine 15 MG capsuleIndicat ions:History of bariatric surgery,Weight gain,Vitamin D deficiency TAKE 1 CAPSULE BY MOUTH BEFORE BREAKFAST 30 capsule 05/23/19 25 Active Blood Pressure kit Use once a day 1 kit 06/03/19 25 Active traZODone (Desyrel) 100 MG tablet Take 1 tablet (100 mg) by mouth at bedtime. 30 tablet 2 06/03/19 25 025 Active traZODone (Desyrel) 50 MG tablet TAKE 1 TABLET BY MOUTH AT BEDTIME 90 tablet 03/20/19 25 025 Discontinued(Do se adjustment) phentermine 15 MG capsuleIndicat ions:History of bariatric surgery,Weight gain,Vitamin D deficiency TAKE 1 CAPSULE BY MOUTH BEFORE BREAKFAST 30 capsule 04/21/19 25 025 Discontinued(Re order (will not trigger notification to Pharmacy)) Active Problems Problem Noted Date Diagnosed Date Missing teeth, acquired 05/06/2023 Localized gingival recession, minimal 05/06/2023 Dental caries 05/06/2023 Fractured dental mandaen with loss of materi al 03/25/2023 Ganglion [...] Encounters Date Type Department Care Team Description 06/02/2024 2:45 PM EDT Office Visit [facility] [address] [place] [id number] Ramirez Rene MD PE (physical exam), annual (Primary Dx); Elevated blood pressure reading; Chronic insomnia; Situational stress; History of bariatric surgery; Overweight (BMI 25.0-29.9); Vitamin D deficiency; Elevated parathyroid hormone; Screening examination for STI; Rash 06/02/2024 Travel 06/01/2024 Telephone [facility] [address] [place] [address] [phone] Hui Buchanan MA chart prep 05/26/2024 Patient Outreach [facility] [address] [place], [place] [phone] Ramirez Rene MD Pre-visit Planning (SDOH unable to reach [facility]) 05/22/2024 Refill [facility] [address] [place] [address], [place] [address] NameRamirez MD History of bariatric surgery; Weight gain; Vitamin D deficiency 04/21/2024 Orders Only [facility] [address] [place] [address] Ramirez Rene MD 04/20/2024 Refill [facility] [address] [place] [address] Ramirez Rene MD History of bariatric surgery; Weight gain; Vitamin D deficiency 03/20/2024 Refill [facility] [address] [place] [address] Iraj Landa DDS 03/20/2024 Refill [facility] [address] [place] [address] Ramirez Rene MD 03/09/2024 Telephone [facility] [address] [place] [address] Amador, Estefani 03/09/2024 Telephone [facility] [address] [place] [address] Amador, Estefani 03/06/2024 Telephone [facility] [address] [place] [address] Estefani Amador from Last 3 Months Immunizations Name Administration [...] Mass Index 28.42 06/02/2024 2:49 PM EDT Plan of Treatment Upcoming Encounters Date Type Department Care Team (Late st Contact Info) Description 06/11/2024 1:30 PM EDT Telemedicine [facility] [address] [place] [address] Health Maintenance Due Date Last Done Comments HIV Screening 1980 Family Planning (PISQ) 02/04/1995 Hepatitis C Screening 02/04/1998 Hepatitis B Vaccines (1 of 3 - 19+ 3-dose series) 02/04/1999 Pap Smear 03/17/2023 03/17/2020 Dental Oral Exam 09/24/2023 03/25/2023, , 09/15/2020, Additional history exists COVID-19 Vaccine (2023- season) 2023 06/18/2020, 05/21/2020 Influenza Vaccine (#1) 2023 03/11/2020, 2018 Dental Prophylaxis 11/07/2023 05/06/2023, 0 08/23/2021, 09/15/2020, Additional history exists Depression Screening 03/14/2024 03/14/2023, 03/14/19 SDOH Screening 03/14/2024 03/14/2023 Dental X-Ray: Bitewings 03/26/2024 03/25/19, 08/23/2021, 02/23/2020, Additional history exists Alcohol/Substance Use Screening 09/19/2024 09/20/2023 Cervical Cancer Screening 03/17/2025 HPV/Cotest 03/17/2025 03/17/2020 Tobacco Screening 06/02/2025 06/02/2024 Dental X-Ray: Full Mouth 03/26/2026 03/25/2023, 01/26 Mammogram 04/21/2026 04/21/2024, 03/29, 05/08/2021 Lipid Panel 12/18/2026 12/18/2021 DTaP/Tdap/Td Vaccines (2 [...] Procedure Name Priority Date/Time Associated Diagnosis Comments BI MAMMOGRAM SCREENING TOMOSYNTHESIS BILATERAL Routine 04/21/2024 3:30 PM EST PROPHYLAXIS - ADULT Routine 05/06/2023 8 :00 AM EDT INTRAORAL - COMPLETE SERIES OF RADIOGRAPHIC IMAGES [...] Results * BI Mammogram Screening Tomosynthesis Bilateral (04/21/2024 3:30 PM EST) Anatomical Region Laterality Modality Breast Bilateral Mammography 04/21/2024 3:30 PM EST Narrative 04/26/2024 1:09 PM EST ? [facility] [place] [facility] ?[place] [address] ? Mammography Report ? Signed ? Patient: Alcantar,Yisel D ?MR#: [id number] ?? [id number] ? : 1980 ?Acct:[id number] ? Age/Sex: 44 / F ?ADM Date: 02/25/25 ? Loc: HO.MAMMO ? Attending Dr: Ramirez Rene MD ? Ordering Physician: Anju,Ramirez SANDOVAL ?Results: 1Negative ? Date of Service: 04/21/24 ?Follow Up: 1 Year From Orig ?? inal Mammogram ? Procedure(s): MM tomosynthesis screening BI ?? Accession Number(s): [id number] ? cc: Anju,Ramirez SANDOVAL ? EXAMINATION: ?? MM SCREENING DIGITAL BREAST TOMOSYNTHESIS, BILATERAL ? CLINICAL INFORMATION: ? Screening. Asymptomatic. ? COMPARISON: ?? Mammography: Comparison is made with available priors ? TECHNIQUE: ?? Digital breast mammography with tomosynthesis is performed in both the ?? craniocaudal and mediolateral oblique views along with computer-aided ?? detection (CAD). ? FINDINGS: ?? The breasts are heterogeneously [...] due date for their next mammogram. ? Electronically signed by: ??Margarita Xiao DO ??04/26/2024 01:06 PM EST ?? RP ? Dictated By: ?Margarita Xiao DO ? Signed By: ?<Electronically signed by Margarita Xiao, DO in OV> ? 04/26/24 1306 ? DD/ 1530 ? TD/TT: 04/21/24 1540 ? Granite Cutter Apprentice: ? Procedure Note Donotuseinterpreter, Image - [facility]20[facility] [address] [place], [place] [address] Mammography Report Signed Patient: Yisel Alcantar DMR#: [id number] : 1980Acct:[id number] Age/Sex: 44 / FADM Date: 04/21/24 Loc: HO.MAMMO Attending Dr: Ramirez Rene MD Ordering Physician: Ramirez Reneesults: 1Negative Date of Service: 04/21/24Follow Up: 1 Year From Orig inal Mammogram Procedure(s): MM tomosynthesis screening BI Accession Number(s): [id number] cc: Ramirez Rene MD EXAMINATION: MM SCREENING DIGITAL BREAST TOMOSYNTHESIS, BILATERAL CLINICAL INFORMATION: Screening. Asymptomatic. COMPARISON: Mammography: Comparison is made with available priors TECHNIQUE: Digital breast mammography with tomosynthesis is performed in both the craniocaudal and mediolateral oblique views along with computer-aided detection (CAD). FINDINGS: The breasts are heterogeneously dense, which [...] target due date for their next mammogram. Electronically signed by: Margarita Xiao DO 04/26/2024 01:06 PM [facility] Dictated By: Margarita Xiao DO Signed By: <Electronically signed by Margarita Xiao DO in OV> 04/26/24 1306 DD/ 1530 TD/TT: 04/21/24 1540 Granite Cutter Apprentice: Ramirez Name IMG BI PROCEDURES Edited Result - Final * LIPID PANEL, STANDARD (12/18/2021 11:08 AM [...] ?? Alonso NIÑO et al. PALLAVI. 2013;310(19): 1356-7979 ?? (http://education.Spare Backup/faq/CFR793) Non-HDL Cholesterol 96 <130 mg/dL (calc) [facility] Comment: For patients with diabetes plus 1 major ASCVD risk ?? factor, treating to a non-HDL-C goal of <100 mg/dL ?? (LDL-C of <70 mg/dL) is considered a therapeutic ?? option. Triglycerides 90 <150 mg/dL [facility]VE [facility] 12/18/2021 11:0 8 AM EDT us Ramirez Rene MD LAB BLOOD ORDERABLES Final Resul t [facility] * THINPREP PAP (03/17/2020 11:18 AM EST) Clinical Information: None given [facility] COMMENT SEE COMMENT [facility] [...] historic and ?? current clinical information. ?? Feed Crusher : SEE COMMENT [facility] Comment: MXD, CT (ASCP) CT screening location: [address] ??[address] Interpretation/R esult: Negative for intraepithelial lesion or malignancy. [facility] LMP: NONE GIVEN [facility] Prev. BX: NONE GIVEN [facility] Prev. PAP: NONE GIVEN [facility] SOURCE: None given [facility] Statement Of Adequacy: SEE COMMENT [facility] Comment: Satisfactory for evaluation. Endocervical/transformation zone component absent. Age and/or menstrual status not provided 03/17/2020 11:[address] [facility] LAB PATHOLOGY ORDERABLES Final Result Performing Organization Address [facility] Phone Number [facility] [address] * HPV mRNA E6/E7 (03/17/2020 11:18 AM EST) HPV nRNA E6/E7 Not Detected Not Detected [facility] Comment: This test was performed using the APTIMA HPV Assay ([employer] This assay detects E6/E7 viral messenger RNA (mRNA) from 14 high-risk HPV types (16,18,31,33,35,39,45,51,52,56,58,59,66,68). ?? The analytical performance characteristics of this assay have been determined by [employer]. The modifications have not been cleared or approved by the FDA. This assay has been validated pursuant to the CLIA regulations and is used for clinical purposes. 03/17/2020 11:1 8 AM EST Talia Jalloh [facility] LAB BLOOD ORDERABLES Urvashi l Result Performing Organization Address [facility] de Phone Number [facility] [address] from Last 3 Months or Most Recently Relevant to Health Maintenance Insurance [facility] , [address] [address] [employer] PPO DENTAL - CIGNA DENTAL PPO Care Teams Financial Compliance Manager Relationship Specialty Start Date End Date Name, MD Ramirez [address] [place] [id number] PCP - General Family Medicine 12/03/18
--- OUTSIDE RECORDS SUMMARY | 2024-06-04 09:02 | XMS_ITS | Encounter Summary ---
Author Organization [employer] Address [address] [place] [address] [address] [place] [address] Care Team Providers Care Asphalt Paving Machine Operator Name Role Phone Name, Ramirez SANDOVAL Primary Care Provider [phone] Reason for Visit * Reason Onset Date Comments chart prep 06/01/2024 Encounter Details Date Type Department Care Team ([facility] st Contact Info) Description 06/01/2024 Telephone [facility] [address] [place] [address] Hui Buchanan MA chart prep Social History Tobacco Use Types Packs/Day Years [...] encounter Miscellaneous Notes * Telephone Encounter - Hui Buchanan MA - 06/01/2024 3:18 PM EDT Chart Prep Labs: done Images: done Vaccines due: yes Referrals: not applicable Screenings: pap smear Overdue care gaps: SDOH, PHQ-9, and YOANA-7 documented in this encounter Plan of Treatment Upcoming Encounters Date Type Department Care Team (Late st Contact Info) Description 06/11/2024 1:30 PM EDT Telemedicine [facility] [address] [place] [address] documented as of this encounter Visit Diagnoses Not on filedocumented in this encounter Additional Health Concerns Assessment Noted Time PHQ-9 Depression Total Score: 0 03/14/19 24 9:24 AM EST documented as of this encounter Care Teams Asphalt Paving Machine Operator Relationship Specialty Start Date End Date Name, MD Ramirez [address] [place] [address] PCP - General Family Medicine 12/03/18 documented as of this encounter
--- OUTSIDE RECORDS SUMMARY | 2024-06-04 09:02 | XMS_ITS | Encounter Summary ---
Author Organization [employer] [facility] Address [address] [place] [address] 7[address] [place] [address] Care Team Providers Care Private Tutor Name Role Phone Name, Ramirez SANDOVAL Primary Care Provider [phone] Reason for Visit * Reason Onset Date Comments Med Refill 03/20/2024 Encounter Details Date Type Department Care Team (Late st Contact Info) Description 03/20/2024 Refill [facility] [address] [place] [address] Iarj Landa, DDS [address] [place] [address] Social History Tobacco Use Types Packs/Day Years [...] Info) Description 06/11/2024 1:30 PM EDT Telemedicine [facility] [address] [place] [address] documented as of this encounter Visit Diagnoses Not on filedocumented in this encounter Additional Health Concerns Assessment Noted Time PHQ-9 Depression Total Score: 0 03/14/19 24 9:24 AM EST documented as of this encounter Care Teams Private Tutor Relationship Specialty Start Date End Date Name, MD Ramirez [address] [place] [address] PCP - General Family Medicine 12/03/18 documented as of this encounter
--- OUTSIDE RECORDS SUMMARY | 2024-06-04 09:02 | XMS_ITS | Encounter Summary ---
Author Organization [email or web address] [facility] Address [address] [place] [address] [address] [place] [address] Care Team Providers Care Infantry Indirect Fire Crewmember Name Role Phone Name, Ramirez SANDOVAL Primary Care Provider [phone] Reason for Visit * Reason Onset Date Comments Med Refill 06/26/2022 Encounter Details Date Type Department Care Team (Late st Contact Info) Description 06/26/2022 Refill [facility] [address] [place], [place] [phone] Name, MD Ramirez [address] [place] [address] Chronic insomnia Social History Tobacco Use Types [...] Info) Description 06/11/2024 1:30 PM EDT Telemedicine [facility] [address] [place] [address] documented as of this encounter Visit Diagnoses Diagnosis Chronic insomnia Insomnia, unspecified documented in this encounter Care Teams Infantry Indirect Fire Crewmember Relationship Specialty Start Date End Date Name, MD Ramirez [address] [place] [address] PCP - General Family Medicine 12/03/18 documented as of this encounter
[2024-06-04 11:38] LABS: MANUAL DIFF FLAG NO
[2024-06-04 12:02] LABS: Basophils Percent Auto 0.3 % (0-2); Eosinophils Percent Auto 0.7 % (0-4); Hematocrit 36.8 % (37.0-47.0); Hemoglobin 12.5 g/dl (12.0-16.0); Imm Gran Abs Auto 0.02 X10*3/uL (0.00-0.03); Imm Gran Pct Auto 0.3 % (0.0-0.4); Lymphocytes Absolute Auto 1.2 X10*3/uL (1.2-4.9); Lymphocytes Percent Auto 19.8 % (20-40); Mean Corpuscular Hemoglobin 29.7 pg (27.0-33.0); Mean Corpuscular Volume 87.4 fL (80.0-98.0); Mean Platelet Volume 10.2 fL (9.4-12.3); Monocytes Absolute Auto 0.3 X10*3/uL (0.1-1.2); Monocytes Percent Auto 4.4 % (2-11); Neutrophils Absolute Auto 4.6 x10*3/uL (2.0-8.3); Neutrophils Percent Auto 74.5 % (45-73); Platelet Count 312 X10*3/uL (160-400); Red Blood Count 4.21 X10*6/uL (4.20-5.50); Red Cell Distribution Width 11.8 % (11.0-16.0); White Blood Count 6.2 X10*3/uL (4.8-10.8)
[2024-06-04 12:12] LABS: Alanine Aminotransferase < 6 U/L (0-31); Alkaline Phosphatase 73 U/L (39-117); Anion Gap 11 (12-20); Aspartate Amino Transferase 17 U/L (5-31); Bilirubin Total 0.5 mg/dL (0.0-1.0); Blood Urea Nitrogen 8 mg/dL (9-16); Calcium 8.7 mg/dL (8.4-10.2); Carbon Dioxide 27 mmol/L (22-29); Chloride 105 mmol/L (96-108); Cholesterol 152 mg/dL (<200); Estimated Glomerular Filt Rate > 60; Glucose Random 84 mg/dL (60-115); HDL Cholesterol 51 mg/dL (>40); LDL Cholesterol Calculated 86 mg/dL (<100); Potassium 3.8 mmol/L (3.3-5.1); Sodium 139 mmol/L (135-145); Total Protein 7.4 g/dL (6.5-8.0); Triglycerides 76 mg/dL (<150)
[2024-06-04 12:16] LABS: Parathyroid Hormone Intact 131.2 pg/mL (8.7-77.1)
[2024-06-04 12:26] LABS: HBS Num1 0.66 mIU/mL (0-7.99); HBsAGNum1 0.38 S/CO (0.00-0.99); HIV AB/AG Nonreactive (Nonreactive); HIV Num 1 0.07 S/CO (0.00-0.99); Hepatitis B Surface Antigen Negative (Negative); ~HepC Num1 0.29 S/CO (0.00-0.79); ~Hepatitis B Surface Antibody NONREACTIVE (Nonreactive); ~Hepatitis C Antibody Nonreactive (Nonreactive)
[2024-06-04 12:29] LABS: Vitamin D 25-OH Total 14.6 ng/mL (>30)
[2024-06-04 16:38] LABS: CT PCR NOT DETECTED (Not Detect.); NG PCR NOT DETECTED (Not Detect.)
[2024-06-05 10:07] LABS: RPR Rapid Plasma Reagin NON-REACTIVE (NON-REACTIVE)
== END 2024-06-04 08:42 | disposition home or self-care (01) ==
LOC: HO.HHCL 08:41
PROVIDERS: Visit Provider Internal Medicine Geriatric Medicine
DX: Z00.00 Encounter for general adult medical examination without abnormal findings (principal); Z98.84 Bariatric surgery status; R79.89 Other specified abnormal findings of blood chemistry; E55.9 Vitamin D deficiency, unspecified
CPT/HCPCS: 80053; 80061; 82306; 83970; 85025; 86592; 86706; 86803; 87340; 87389; 87491; 87591

== ENCOUNTER 2025-01-14 08:31 | Outpatient (REF) | payer OTHER, SELFPAY ==
[2025-01-17 07:54] LABS: TS Negative Control Passed; TS Panel A 0; TS Panel B 0; TS Positive Control Passed; TSpotTB Negative (Negative)
== END 2025-01-14 08:32 | disposition home or self-care (01) ==
LOC: HO.HHCL 08:31
PROVIDERS: PCP Internal Medicine Geriatric Medicine; Visit Provider Internal Medicine Geriatric Medicine
DX: Z11.1 Encounter for screening for respiratory tuberculosis (principal)
CPT/HCPCS: 36415; 86481